=== PATIENT | female | born 1955 | race Hispanic/Latino ===

== ENCOUNTER 2017-03-19 07:20 | Inpatient (IN) | payer BC ==
[2017-03-19 07:31] VITALS: BMI 25.0
[2017-03-19] MEDS ORDERED: Iohexol 240 (50 ml) ONE (08:00)
--- NOTE | 2017-03-19 08:02 | ED PDOC ---
Arrival/HPI - General Historian: Patient - History of Present Illness Time/Duration: 1 week Symptom Onset: Gradual Symptom Course: Unchanged Quality: Aching, Cramping Severity Level: 4 Activities at Onset: Rest Context: Home - General Chief Complaint: Abdominal Pain Time Seen by Provider: 03/19/17 07:43 - History of Present Illness Narrative History of Present Illness (Text): 03/19/17 08:01 This is a 61Y F with PMH pancreatitis, alcoholic hepatitis, cholelithiasis who came to ED for abdominal pain x 1 week. She reports it starts at the RUQ and has had this in the past. She also says that she has been having n/v/d, but denies blood or dark stools. She used menthol alcohol to make her feel better. Her last drink was at 5pm yesterday. She also reports having subjective fever and chills. She denies CP, SOB, numbness/tingling, vision changes, dysuria or hematuria. She was last seen at [facility] in 09/2016 and was found to have a mass in gallbladder on abdominal ultrasound. Patient was noted to be a poor surgical candidate. She had an EGD also at [facility] at that time which showed esophageal varices. (Melinda Garcia) Past Medical History - Provider Review Nursing Documentation Reviewed: Yes - Infectious Disease Hx of Infectious Diseases: None - Tetanus Immunization Tetanus Immunization: Unknown - Cardiac Hx Cardiac Arrhythmia: Yes (SVT) Hx Pacemaker: No - Neurological Hx Paralysis: No - Hematological/Oncological Hx Hepatitis A: Yes Other/Comment: hypothermia - Musculoskeletal/Rheumatological Hx Falls: No - Gastrointestinal Hx Gastrointestinal Disorders: (hiatal hernia) Other/Comment: galstones - Psychiatric Hx Depression: No Hx Emotional Abuse: No Hx Physical Abuse: No Hx Substance Use: No - Past Surgical History Past Surgical History: No Previous - Surgical History Other/Comment: heart ablasion - Anesthesia Hx Anesthesia Reactions: No - Suicidal Assessment Feels Threatened In Home Enviroment: No Family/Social History - Physician Review Nursing Documentation Reviewed: Yes Family/Social History: Unknown Family HX Smoking Status: Current Some Days Smoker Hx Alcohol Use: Yes (since teenage years) Hx Substance Use: No Hx Substance Use Treatment: No Allergies/Home Meds Allergies/Adverse Reactions: Allergies No Known Allergies Allergy (Verified 03/19/17 08:23) Home Medications: Home Meds Medication Instructions Recorded Confirmed Ursodiol [Actigall] 300 mg PO BID 10/09/16 03/19/17 amLODIPine [Norvasc] 10 mg PO DAILY 10/09/16 03/19/17 traMADol [Ultram] 50 mg PO PRN PRN 10/09/16 03/19/17 Review of Systems - Review of Systems Constitutional: Fevers Eyes: Normal. absent: Vision Changes ENT: Normal. absent: Hearing Changes Respiratory: Normal. absent: SOB, Cough Cardiovascular: Normal. absent: Chest Pain, Palpitations Gastrointestinal: Abdominal Pain, Diarrhea, Nausea, Vomiting. absent: Constipation, Hematochezia, Hematemesis Genitourinary Female: Normal. absent: Dysuria, Frequency, Hematuria Musculoskeletal: Normal. absent: Arthralgias Skin: Normal. absent: Rash Neurological: Normal. absent: Headache, Dizziness Endocrine: Normal. absent: Diaphoresis Hemo/Lymphatic: Normal. absent: Easy Bleeding, Easy Bruising Psychiatric: Normal. absent: Anxiety, Depression Physical Exam Vital Signs Reviewed: Yes Temperature: Afebrile Blood Pressure: Normal Pulse: Tachycardic Respiratory Rate: Normal Appearance: Positive for: Well-Appearing, Non-Toxic, Comfortable Pain Distress: None Mental Status: Positive for: Alert and Oriented X 3 - Systems Exam Head: Present: Atraumatic, Normocephalic Pupils: Present: PERRL Extroacular Muscles: Present: EOMI Conjunctiva: Present: Normal Mouth: Present: Moist Mucous Membranes Neck: Present: Normal Range of Motion Respiratory/Chest: Present: Clear to Auscultation, Good Air Exchange. No: Respiratory Distress, Accessory Muscle Use Cardiovascular: Present: Regular Rate and Rhythm, Normal S1, S2. No: Murmurs Abdomen: Present: Tenderness, Distention, Normal Bowel Sounds. No: Peritoneal Signs, Rebound, Guarding Back: Present: Normal Inspection Upper Extremity: Present: Normal Inspection. No: Cyanosis, Edema Lower Extremity: Present: Normal Inspection. No: Edema Neurological: Present: GCS=15, CN II-XII Intact, Speech Normal Skin: Present: Warm, Dry, Normal Color. No: Rashes Psychiatric: Present: Alert, Oriented x 3, Normal Insight, Normal Concentration Medical Decision Making Re-evaluation Time: 09:30 Reassessment Condition: Unchanged - Lab Interpretations I have reviewed the lab results: Yes Interpretation: Abnormal lab values (elevated bilirubin) - RAD Interpretation Mining Analyst: Radiologist - EKG Interpretation Interpreted by ED Physician: Yes Type: 12 lead EKG Comparison: Com.w/previous EKG ED Course and Treatment: 03/19/17 08:07 Impression: This is a 61Y F with PMH pancreatitis, alcoholic hepatitis, cholelithiasis here for abdominal pain. Plan: -- EKG -- CBC, CMP, U/A, Urine culture, amylase, lipase, pt/ptt, ammonia -- CT abd/pelvis, Abdominal U/S -- Pepcid, IVF, Zofran --Reassess Prior Visits: Notes and results from previous visits were reviewed. 03/19/17 10:00 Progress Note: Patient still complains of pain. Morphine given. Patient found to have leukocytosis, UTI and elevated bilirubin. Zosyn ordered. Spoke with Dr. Enamorado who has accepted the patient into his service. (Melinda Garcia) Patient Seen With Resident: In agreement with resident note. Patient was seen and evaluated with resident, came up with plan and treatment together. (Sergio Ty DO) - Lab Interpretations Lab Results: 03/19/17 08:00 03/19/17 09:00 Lab Results 03/19/17 09:00: Amylase 35, Lipase 44 03/19/17 09:00: Alcohol, Quantitative < 10 03/19/17 09:00: Sodium 128 L, Potassium 3.6, Chloride 92 L, Carbon Dioxide 28, Anion Gap 12, BUN 7, Creatinine 0.7, Est GFR ( Amer) > 60, Est GFR (Non- Af Amer) > 60, Random Glucose 112 H, Calcium 8.4, Total Bilirubin 6.4 H, AST 142 H, ALT 30, Alkaline Phosphatase 194 H, Total Protein 7.0, Albumin 3.3, Globulin 3.7, Albumin/Globulin Ratio 0.9 L 03/19/17 08:00: Urine Color Light brown, Urine Appearance Cloudy, Urine pH 6.0, Ur Specific [place] 1.020, Urine Protein 30 H, Urine Glucose (UA) 100 H, Urine Ketones Trace H, Urine Blood Trace-lysed H, Urine Nitrate Positive H, Urine Bilirubin Large H, Urine Urobilinogen >=8.0, Ur Leukocyte Esterase Trace H, Urine RBC 0 - 2, Urine WBC 0 - 2, Ur Epithelial Cells 3 - 4, Urine Bacteria Large 03/19/17 08:00: WBC 11.3 H D, RBC 3.59, Hgb 13.0, Hct 37.8, MCV 105.3 H, MCH 36.2 H, MCHC 34.4, RDW 13.9, Plt Count 156, MPV 10.4 - RAD Interpretation Narrative RAD Interpretations (Text): CXR showed no active disease. Please see full report. (Melinda Garcia) Radiology Orders: 03/19/17 07:46 CHEST PORTABLE [RAD] Stat 03/19/17 07:57 ABD PELVIS PO & IV CONTRAST [CT] Stat ABDOMEN COMPLETE [US] Stat - EKG Interpretation EKG Interpretation (Text): 03/19/17 08:45 HR 120. intervals within normal limits. LVH. Sinus tachycardia. (Melinda Garcia) - Medication Orders Current Medication Orders: Sodium Chloride (Sodium Chloride 0.9%) 1,000 mls @ 250 mls/hr IV .Q4H ONE Stop: 03/19/17 12:12 Last Admin: 03/19/17 08:30 Dose: 250 mls/hr Piperacillin Sod/Tazobactam Sod (Zosyn 3.375 In Ns 100ml) 100 mls @ 200 mls/hr IVPB STAT STA PRN Reason: Protocol Stop: 03/19/17 11:16 Discontinued Medications Famotidine (Pepcid) 20 mg IVP STAT STA Stop: 03/19/17 08:14 Last Admin: 03/19/17 08:30 Dose: 20 mg Iohexol (Omnipaque 240 (50 Ml)) Confirm Administered Dose 50 ml .ROUTE .STK-MED ONE Stop: 03/19/17 08:01 Iohexol (Omnipaque 350 100 Ml) Confirm Administered Dose 350 mg .ROUTE .STK-MED ONE Stop: 03/19/17 09:39 Morphine Sulfate (Morphine) 2 mg IVP STAT STA Stop: 03/19/17 09:18 Ondansetron HCl (Zofran Inj) 4 mg IVP STAT STA Stop: 03/19/17 08:14 Last Admin: 03/19/17 08:30 Dose: 4 mg Disposition/Present on Arrival - Present on Arrival Any Indicators Present on Arrival: No History of DVT/PE: No History of Uncontrolled Diabetes: No Urinary Catheter: No History Surgical Site Infection Following: None - Disposition Have Diagnosis and Disposition been Completed?: Yes Disposition Time: 10:00 Patient Plan: Admission - Disposition Diagnosis: Abdominal pain Disposition: HOSPITALIZED Patient Problems: Current Active Problems Problem Status Onset Abdominal pain Acute Condition: FAIR Print Language: TELUGU Referrals: [employer] Yohannes Christianson, [Non-Staff] - Follow up with primary
[2017-03-19] MEDS ORDERED: Sodium Chloride 0.9% 1,000 ML IV ONE (08:13)
[2017-03-19 08:28] LABS: HEMATOCRIT 37.8 % (36.0-48.0); MEAN CELL VOLUME 105.3 fL (80.0-105.0); MEAN CORPUSCULAR HEMOGLOBIN 36.2 pg (25.0-35.0); MEAN CORPUSCULAR HGB CONC 34.4 g/dl (31.0-37.0); MEAN PLATELET VOLUME 10.4 fl (7.0-11.0); RED CELL DISTRIBUTION WIDTH 13.9 % (11.5-14.5); WHITE BLOOD COUNT 11.3 10^3/ul (4.5-11.0)
--- NOTE | 2017-03-19 09:01 | RAD ---
HISTORY: SOB COMPARISON: 03/19/2017 FINDINGS: LUNGS: No active pulmonary disease. PLEURA: No significant pleural effusion identified, no pneumothorax apparent. CARDIOVASCULAR: Normal. OSSEOUS STRUCTURES: No significant abnormalities. VISUALIZED UPPER ABDOMEN: Normal. OTHER FINDINGS: None. IMPRESSION: No active disease.
[2017-03-19 09:10] LABS: URINE APPEARANCE CLOUDY (CLEAR); URINE BILIRUBIN LARGE (NEGATIVE); URINE BLOOD TRACE-LYSED (NEGATIVE); URINE COLOR LIGHT BROWN (YELLOW); URINE GLUCOSE (UA) 100 mg/dL (NEGATIVE); URINE KETONE TRACE mg/dL (NEGATIVE); URINE LEUKOCYTE ESTERASE TRACE Leu/uL (NEGATIVE); URINE PROTEIN 30 mg/dL (<30 mg/dL); URINE UROBILINOGEN >=8.0 E.U./dL (<1 E.U./dL)
[2017-03-19 09:12] LABS: URINE RBC 0 - 2 /hpf (0-2); URINE WBC 0 - 2 /hpf (0-6)
[2017-03-19 09:13] LABS: URINE BACTERIA LARGE (NEG)
[2017-03-19] MEDS ORDERED: cefTRIAXone 1 gm 1 GM/100 ML BAG IVPB STA (09:15)
[2017-03-19] MEDS ORDERED: Morphine 2 mg/ml ISec IVP STA (09:17)
[2017-03-19 09:25] LABS: ALB/GLOB RATIO 0.9 (1.1-1.8); ALKALINE PHOSPHATASE 194 U/L (38-133); ALT/SGPT 30 U/L (7-56); AST/SGOT 142 U/L (15-39); BILIRUBIN,TOTAL 6.4 mg/dL (0.2-1.3); BLOOD UREA NITROGEN 7 mg/dL (7-21); CALCIUM 8.4 mg/dL (8.4-10.5); CARBON DIOXIDE 28 mmol/L (21-33); CHLORIDE 92 mmol/L (95-110); GFR AFRICAN-AMERICAN > 60; GLUCOSE,RANDOM 112 mg/dL (70-110); POTASSIUM 3.6 mmol/L (3.6-5.0); SODIUM 128 mmol/L (132-148)
[2017-03-19] MEDS ORDERED: Iohexol 350 MG/100 ML VIAL ONE (09:38)
--- NOTE | 2017-03-19 09:57 | CARD ---
APPROVED REPORT EKG Measurement Heart [id number] <Conclusion> Sinus tachycardia Possible Left atrial enlargement Left ventricular hypertrophy Cannot rule out Septal infarct, age undetermined Possible Lateral infarct, age undetermined Abnormal ECG
--- NOTE | 2017-03-19 10:25 | US ---
HISTORY: abdominal pain, mass in gall bladder on last U/S COMPARISON: CT chest, abdomen, pelvis without contrast performed 10/31/16, abdominal ultrasound performed 10/15/16 TECHNIQUE: Sonographic evaluation of the abdomen. FINDINGS: LIVER: Measures 21.9 cm in sagittal dimension. Echogenic liver may be seen in setting of hepatic parenchymal disease or fatty infiltration. No focal hepatic mass identified. The main portal vein appears patent with normal directional flow. No intrahepatic bile duct dilatation. Abdominal ascites. GALLBLADDER: Large heterogeneous partially echogenic focus with posterior acoustic shadowing consistent with gallstone identified on CT performed 10/31/16. No gallbladder wall thickening. Negative sonographic Summers's sign as assessed by the application technical designer. COMMON BILE DUCT: Measures 6 mm. PANCREAS: Not well visualized. RIGHT KIDNEY: Measures 10.6 x 3.7 x 6.5 cm. No obstructing calculus or hydronephrosis identified. LEFT KIDNEY: Measures 8.9 x 4.5 x 5.3 cm. 1.2 x 0.9 x 1.1 cm lower pole probable renal cyst. No obstructing calculus or hydronephrosis identified. SPLEEN: Measures approximately 11.1 cm. AORTA: Limited views appear unremarkable. IVC: Limited views appear unremarkable. OTHER FINDINGS: None. IMPRESSION: Abdominal ascites. Hepatomegaly. Echogenic liver may be seen in setting of hepatic parenchymal disease or fatty infiltration. Large heterogeneous partially echogenic focus with posterior acoustic shadowing consistent with gallstone identified on CT performed 10/31/16. Gallbladder mass cannot be entirely excluded. 1.2 cm probable left lower pole renal cyst.
[2017-03-19 10:45] LABS: AMYLASE 35 U/L (35-125); LIPASE 44 U/L (23-300)
[2017-03-19] MEDS ORDERED: Piperacillin/Tazobact 3.375 gm 100 ML IVPB STA (10:47)
--- NOTE | 2017-03-19 10:54 | CT ---
PROCEDURE: CT Abdomen and Pelvis with contrast HISTORY: abdominal pain COMPARISON: 10/31/2016 TECHNIQUE: Contrast dose: 100 cc of Omni 350 Radiation dose: Total exam DLP = 896 mGy-cm. This CT exam was performed using one or more of the following dose reduction techniques: Automated exposure control, adjustment of the mA and/or kV according to patient size, and/or use of iterative reconstruction technique. FINDINGS: LOWER THORAX: Moderate hiatal hernia. Bibasilar consolidation with small effusions LIVER: Patchy areas of edema are seen in the periphery of the liver. This could be due to hepatitis GALLBLADDER AND BILE DUCTS: There is a large 2 x 3 cm gallstone. PANCREAS: Unremarkable. No gross lesion or ductal dilatation. SPLEEN: Unremarkable. ADRENALS: Unremarkable. No mass. KIDNEYS AND URETERS: Unremarkable. No hydronephrosis. No solid mass. VASCULATURE: Unremarkable. No aortic aneurysm. BOWEL: There is mural thickening and edema in the wall of the colon consistent with colitis. APPENDIX: Normal appendix. PERITONEUM: There is severe ascites LYMPH NODES: Unremarkable. No enlarged lymph nodes. BLADDER: Unremarkable. REPRODUCTIVE: Unremarkable. BONES: No acute fracture. OTHER FINDINGS: None. IMPRESSION: Severe ascites Mural thickening and edema in the wall of the colon consistent with colitis. Large gallstone Patchy areas of edema in the periphery of the liver, possible hepatitis
[2017-03-19] MEDS ORDERED: Multivitamin (MVI) 10 ML, Thiamine 100 MG, Folic Acid 1 MG in Sodium Chloride 0.9% 1,00... IV ONE (11:34)
[2017-03-19 12:28] LABS: INR 1.31 (0.93-1.08); PARTIAL THROMBOPLASTIN TIME 29.2 Seconds (23.7-30.8)
[2017-03-19] MEDS: Sodium Chloride 0.9% 1,000 ML IV SCH ×2 (15:06→22:00)
--- NOTE | 2017-03-19 15:08 | HP ---
HISTORY OF PRESENT ILLNESS: The patient is a 61-year-old female who presented to the Emergency Room accompanied by the patient's parents. According to the ER triage notes, the patient came to the Emergency Room with abdominal pain on and off for 4 days accompanied by nausea and vomiting. The patient stated that the symptoms have been ongoing for months, but patient has been ignoring them. In addition, the patient complained of abdominal pain for a week, mostly in the upper abdomen with abdominal protuberance noted. The patient also complaining of nausea, vomiting, diarrhea. Denies constipation. The patient is an active alcoholic with last drink yesterday. CODE STATUS: Full code. LIVING WILL AND ADVANCED DIRECTIVE: None. ALLERGIES: None. Height is 5 feet 7 inches, weight is 160, BMI is 25.1. HOME MEDICATIONS: 1. Norvasc 10 mg. 2. Actigall, ursodiol 300 twice a day. 3. Protonix 20 mg. 4. Corgard 20 mg daily. 5. Ultram 50 mg p.r.n. SOCIAL HISTORY: Positive for active alcoholism, positive for active smoking. The patient denies communicable transmissible disease. OCCUPATIONAL HISTORY: The patient is still employed and working. MENSTRUAL HISTORY: The patient denies being . PAST MEDICAL AND SURGICAL HISTORY: History of alcoholism, history of nicotine dependence, history of cirrhosis, history of gastrointestinal bleeding, history of ascites, history of paracentesis, history of anemia, history of thrombocytopenia, history of poor compliance, history of transaminitis, history of obstructive jaundice with hyperbilirubinemia and transaminitis, history of hyponatremia, history of proteinuria, microscopic hematuria, pyuria, bacteriuria , history of alcohol dependence, history of negative hepatitis C serology. The patient's past medical history is significant for left foot abscess, history of A positive blood type. The patient's past medical history is significant for severe noncompliance, history of ascites, history of portal hypertension according to the patient, history of ascites, history of severe noncompliance, history of extrahepatic portal vein thrombosis, history of severe noncompliance , history of severe hepatocellular dysfunction, history of cholelithiasis, history of hepatic steatosis and fatty infiltration of the liver, history of mass-like focus in the gallbladder with calcified rim suggestive of large gallstone. The patient's past medical history is significant for history of hepatic steatosis, history of atelectasis, history of nicotine and alcohol dependence, history of left renal hypodense lesion, history of questionable colitis, history of cirrhosis, history of hepatic steatosis. The patient's past medical history is significant for degenerative joint disease and arthritis of the knees, history of chronic alcoholism, history of chronic microvascular ischemic disease of the brain. The patient's past medical history is significant for hiatal hernia, history of left renal hemorrhagic cyst , history of gastritis. The patient's past medical history is significant for chronic alcoholism, history of left axis deviation, history of hypertensive cardiovascular disease. Past medical history is significant for history of hematemesis, history of thrombocytopenia, history of alcohol abuse, history of hypertension. The patient's past medical history is significant for hepatic cirrhosis, active alcohol abuse, history of hematemesis, history of hepatic cirrhosis. The patient's past medical history is also significant for history of [place] grade A esophagitis and grade I varices of the esophagus, hiatal hernia, history of portal hypertensive gastropathy in the stomach, history of endoscopy done, history of hiatal hernia, history of duodenitis, history of EGD done in 09/2016. PHYSICAL EXAMINATION: GENERAL: The patient is seen in stretcher #8. The patient is lying in the bed. The patient is alert, awake, responsive. VITAL SIGNS: T-max 98.9, heart rate initially 120, down to 99, blood pressure 120/70, 104/65, respirations 18, O2 sat 96. The patient is seen lying in the bed. HEAD: Normocephalic, atraumatic. HEENT: Shows positive icterus. Positive jaundice. Dry oral mucosa. NECK: No neck rigidity. CHEST: Kyphosis. LUNGS: Shows no rales, crackles, or wheezing. CARDIOVASCULAR: S1, S2. Regular rhythm. ABDOMEN: Protuberant, tense ascites noticed, diffuse, wall entry guarding noted. Positive tenderness noted diffusely. GENITALIA: Female. RECTAL: Deferred. EXTREMITIES: Shows no pitting edema, no calf tenderness, no Andrzej sign. NEUROLOGIC: The patient is alert, awake, oriented x 3. No asterixis noted. EXTREMITIES: Show no pitting edema, no calf tenderness, no Andrzej sign. NEUROLOGIC: The patient is alert, awake, oriented x 3. Cranial nerves II-XII intact. Gait examination could not be tested. VASCULAR: Palpable pulses. PSYCHIATRIC: Negative. DIAGNOSTICS: WBC 11.3, hemoglobin and hematocrit 13 and 37.8, MCV 105.3, platelets 156. PT, PTT 14.2, INR 1.3. Sodium 128, potassium 3.6, chloride 92, CO2 28, anion gap 12, BUN 7, creatinine 0.7, GFR greater than 60, glucose 112, calcium 8.4, total bili 6.4, AST 142, alk phos 194, ammonia 22. Amylase and lipase is normal. Urine pH 6.0, specific gravity 1.020, 30 protein, glucose 100 , trace ketones, hemolyzed blood, positive nitrites, large bilirubin, trace leukocyte, large bacteria. Alcohol level less than 10. The patient had a CT of the abdomen and pelvis, which shows hiatal hernia, bibasilar consolidation. Hepatic edema noted. Large gallstone noted. Colonic wall mural thickening noted. The patient had an ultrasound done, which shows abdominal ascites, hepatomegaly and hepatic steatosis. The patient's chest x-ray was done in the Emergency Room, which shows no active disease. EKG done in the Emergency Room shows sinus rhythm, left sinus tachycardia, left axis deviation, questionable hypertensive cardiovascular disease. The patient was seen in the Emergency Room by the ER resident. The patient was advised to be admitted. IMPRESSION AND PLAN: 1. Severe symptomatic Tense ascites with symptoms of nausea and vomiting. 2. Urinary tract infection with proteinuria, ketonuria, pyuria, hematuria, bacteriuria. 3. Tachycardia. 4. Hypotension. 5. Leukocytosis. 6. Macrocytosis. 7. Mild coagulopathy. 8. Hyponatremia. 9. Hyperbilirubinemia. 10. Transaminitis. 11. History of active nicotine and alcohol addiction and dependence. 12. Sinus tachycardia. 13. Hypertensive cardiovascular disease. 14. Moderate hiatal hernia. 15. Bibasilar consolidation and effusion. 16. Hepatic edema. 17. Large cholelithiasis. 18. Questionable colitis with colonic wall thickening and edema. 19. Severe ascites. 20. Hepatic fatty infiltration and hepatic steatosis. 21. Massive gallstone. 22. Probable left renal cyst. 23. Tachycardia. PLAN: At this time, the patient is to be admitted to [facility] The patient has been started on IV fluid, normal saline. The patient has been ordered a urine drug screen, thyroid panel, lipid panel. Vitamin B12, vitamin D has been ordered. Repeat CMP, LFT, magnesium, CBC ordered. Blood and urine cultures ordered. CURRENT CONSULTATIONS: 1. Gastroenterology. 2. Surgery. 3. Infectious disease. 4. Interventional radiology ordered. The patient is resumed on Actigall 300 mg twice a day, IV fluids 0.9 normal saline at 100 mL an hour. The patient is resumed on Corgard 20 mg daily, folic acid 1 mg daily, Nicotine patch 21 mg daily, Protonix 20 mg twice a day, IV fluid 0.9 normal saline at 100 mL an hour, thiamine 100 mg IV daily, Zofran 4 IV q. 4 p.r.n., Zosyn 3.375 grams IV q. 6 hours. The patient was started on CIWA protocol and assessment. Out of bed. The patient was seen in stretcher # 8 in the Emergency Room. The patient has been seen and counseled about her condition. The patient has been counseled about cessation of smoking and cessation of alcohol, which she acknowledged and understands. Dictated and electronically signed, not read. Juan Jose Enamorado MD cc: [id number] TT: 03/19/2017 15:08:11 charles LITTLE
[2017-03-19] MEDS: Thiamine 100 mg/ml Inj IV SCH (15:15)
--- NOTE | 2017-03-19 16:02 | CP.PCM.CON ---
History of Present Illness - History of Present Illness History of Present Illness: Seen and examined at bedside, chart was reviewed. Request for consult: Liver Cirrhosis HPI: This is a 61 year old female with a history of Liver cirrhosis secondary to alcohol abuse, Cholelithiasis, comes to the ER with complaints of abdominal pain to RUQ, nausea, vomiting and diarrhea yesterday. Reports that she felt feverish and had chills. No reports of bleeding per rectum. She has history of gallstones and is not a candidate for surgery she was told, she is Ursodiol. She goes to [facility] for FU of her liver. She was last seen in October and has not followed since. She last took alcohol yesterday, "Menthol" to help ease her abdominal discomfort. She was seen by our GI service in September 2016 for hematemesis and she had an EGD and found to have gastric varicies. Ct scan done on admission that rerpot possible colits, show ascites and hepatomegaly, abdominal US was also done and that show gallstone, CBD 6 mm. NO protal vein thrombosis is reported.The patient last had her Colon was at [facility] and was not found to have colon polyps. PMH: ETOH abuse, cholelithiasis, HTN, pancreatitis, Ascites, portal vein thrombosis (2013) Surgical hx: cardiac ablation Fhx: denies Social HX: actively drinking, she drinks daily, (+) smoking, denies drugs Allergies: NKDA Meds: as per DEC ROS: systems reviewed with positive findings, see HPI Past Patient History - Infectious Disease Hx of Infectious Diseases: None - Tetanus Immunizations Tetanus Immunization: Unknown - Past Medical History & Family History Past Medical History?: Yes - Past Social History Smoking Status: Current Some Days Smoker - CARDIAC Hx Cardia Arrhythmia: Yes (SVT) Hx Pacemaker: No - NEUROLOGICAL Hx Paralysis: No - HEMATOLOGICAL/ONCOLOGICAL Hx Hepatitis A: Yes Other/Comment: hypothermia - MUSCULOSKELETAL/RHEUMATOLOGICAL Hx Falls: No - GASTROINTESTINAL Hx Gastrointestinal Disorders: (hiatal hernia) Other/Comment: galstones - PSYCHIATRIC Hx Depression: No Hx Emotional Abuse: No Hx Physical Abuse: No Hx Substance Use: No - SURGICAL HISTORY Other/Comment: heart ablasion - ANESTHESIA Hx Anesthesia Reactions: No Meds Allergies/Adverse Reactions: Allergies Allergy/AdvReac Type Severity Reaction Status Date / Time No Known Allergies Allergy Verified 03/19/17 08:23 - Medications Medications: Current Medications Folic Acid (Folic Acid) 1 mg PO DAILY [facility] [place] Last Admin: 03/19/17 15:06 Dose: 1 mg Multivitamins/Vitamin C 10 ml/Thiamine HCl 100 mg/ Folic Acid 1 mg/ Sodium Chloride 1,011.2 mls @ 100 mls/hr IV .Q10H7M ONE Stop: 03/19/17 21:40 Last Admin: 03/19/17 13:35 Dose: 100 mls/hr Sodium Chloride (Sodium Chloride 0.9%) 1,000 mls @ 100 mls/hr IV .Q10H [facility] [place] Last Admin: 03/19/17 15:06 Dose: 100 mls/hr Piperacillin Sod/Tazobactam Sod (Zosyn 3.375 In Ns 100ml) 100 mls @ 200 mls/hr IVPB Q6 [facility] PRN Reason: Protocol Stop: 03/24/17 12:29 Nadolol (Corgard) 20 mg PO DAILY [facility] [place] Last Admin: 03/19/17 15:05 Dose: 20 mg Nicotine (Nicoderm Cq) 1 patch TD DAILY [facility] [place] Last Admin: 03/19/17 15:04 Dose: 1 patch Ondansetron HCl (Zofran Inj) 4 mg IVP Q4H PRN PRN Reason: Nausea/Vomiting Pantoprazole Sodium (Protonix Ec Tab) 20 mg PO 0730,1630 [facility] [place] Thiamine HCl (Vitamin B1 Inj) 100 mg IV DAILY [facility] [place] Last Admin: 03/19/17 15:15 Dose: 100 mg Ursodiol (Actigall) 300 mg PO BID [facility] [place] Physical Exam - Constitutional Appears: No Acute Distress - Head Exam Head Exam: NORMAL INSPECTION - Eye Exam Eye Exam: Normal appearance, PERRL. absent: Scleral icterus - ENT Exam ENT Exam: Mucous Membranes Moist - Neck Exam Neck exam: Positive for: Normal Inspection - Respiratory Exam Respiratory Exam: Clear to Auscultation Bilateral, NORMAL BREATHING PATTERN. absent: Respiratory Distress - Cardiovascular Exam Cardiovascular Exam: +S1, +S2 - GI/Abdominal Exam GI & Abdominal Exam: Distended, Normal Bowel Sounds, Soft, Tenderness (ascites, mid abdominal tenderness.). absent: Guarding, Rebound - Extremities Exam Extremities exam: Negative for: calf tenderness, pedal edema - Neurological Exam Neurological exam: Alert, Oriented x3 - Psychiatric Exam Psychiatric exam: Normal Affect, Normal Mood - Skin Skin Exam: Dry, Warm Results - Vital Signs Recent Vital Signs: Last Vital Signs Temp 98.9 F 03/19/17 07:31 Pulse 117 H 03/19/17 15:05 Resp 18 03/19/17 11:35 BP 111/76 03/19/17 15:05 Pulse Ox 96 03/19/17 11:35 - Labs Result Diagrams: 03/20/17 07:00 03/20/17 07:00 Labs: Laboratory Results - last 24 hr 03/19/17 13:50 Urine Opiates Screen Positive H Urine Methadone Screen Negative Ur Barbiturates Screen Negative Ur Phencyclidine Scrn Negative Ur Amphetamines Screen Negative U Benzodiazepines Scrn Positive H U Oth Cocaine Metabols Negative U Cannabinoids Screen Negative Assessment & Plan - Assessment and Plan (Free Text) Assessment: ASSESSMENT: Liver Cirrhosis 2 to ETOH N/V/D, Abdominal pain, r/o colitis Ascites Leukocytosis Elevated LFT Grade I varices, portal hypertensive gastropathy H/O Chronic alcohol intake Cholelithiasis, not candidate for surgery H/O portal vein thrombosis PLAN: abdominal doppler, FU portal vein thrombsis on IV antibiotics as per ID Check AFP level in am continue PPI diet as tolerated monitor LFT for evaluation for paracentesis. IVF: MVI folic and thiamine Thank you for this consult and for allowing us to participate in your patients care, will make further recommendation based upon clinical course. Seen and discussed with Dr. Cullen.
--- NOTE | 2017-03-19 16:13 | CP.PCM.CON ---
<Rodriguez Bonner - Last Filed: 03/20/17 08:39> History of Present Illness - History of Present Illness History of Present Illness: General surgery consult note for Rodriguez Mcmullen PGY1 HPI: Patient is a 61yo female with past medical history of gallstones, portal vein hypertension, pancreatitis and varices presented to the ED with abdominal pain since this past Friday. Patient reports the pain is the worst in the RUQ. Pt tried Tramadol, which alleviated the pain temporarily. Patient reports she couldn't eat anything for the past 5 days due to nausea. Pt admits to multiple episodes of non-bilious, non-bloody vomit. Pt reports chest pain, subjective ever, nausea, vomiting, diarrhea, dry cough, SOB, SERRA/dizziness but denies chills , numbness/tingling, and palpitations. 12 point ROS as per HPI above, otherwise negative PMHx: Hiatal hernia, Rheumatoid arthritis, degenerative disc disease, fatty liver disease PSHx: SVT ablation (2006) Allergies: NKDA Social Hx: Admits to tobacco use 1ppd for past 16yrs; occasional ETOH, denies illicit drugs Family Hx: Mother: Colon Ca; Father: CAD PMD: Dr. Luther Past Patient History - Infectious Disease Hx of Infectious Diseases: None - Tetanus Immunizations Tetanus Immunization: Unknown - Past Medical History & Family History Past Medical History?: Yes Past Family History: Reviewed and not pertinent - Past Social History Smoking Status: Light Smoker < 10 Cigarettes Daily Alcohol: Occasional Drugs: Denies - CARDIAC Hx Cardia Arrhythmia: Yes (SVT) Hx Pacemaker: No - NEUROLOGICAL Hx Paralysis: No - HEMATOLOGICAL/ONCOLOGICAL Hx Hepatitis A: Yes Other/Comment: hypothermia - MUSCULOSKELETAL/RHEUMATOLOGICAL Hx Degenerative Joint Disease: Yes Hx Falls: No Hx Herniated Disk: Yes (cervical and sacral) Hx Rheumatoid Arthritis: Yes - GASTROINTESTINAL Hx Gastrointestinal Disorders: (hiatal hernia) Hx Fatty Liver Disease: Yes Hx Nausea: Yes Hx Pancreatitis: Yes Hx Vomiting: Yes Other/Comment: galstones - PSYCHIATRIC Hx Depression: No Hx Emotional Abuse: No Hx Physical Abuse: No Hx Substance Use: No - SURGICAL HISTORY Other/Comment: heart ablasion - ANESTHESIA Hx Anesthesia Reactions: No Meds Allergies/Adverse Reactions: Allergies Allergy/AdvReac Type Severity Reaction Status Date / Time No Known Allergies Allergy Verified 03/19/17 08:23 - Medications Medications: Current Medications Folic Acid (Folic Acid) 1 mg PO DAILY [facility] Last Admin: 03/19/17 15:06 Dose: 1 mg Multivitamins/Vitamin C 10 ml/Thiamine HCl 100 mg/ Folic Acid 1 mg/ Sodium Chloride 1,011.2 mls @ 100 mls/hr IV .Q10H7M ONE Stop: 03/19/17 21:40 Last Admin: 03/19/17 13:35 Dose: 100 mls/hr Sodium Chloride (Sodium Chloride 0.9%) 1,000 mls @ 100 mls/hr IV .Q10H [facility] Last Admin: 03/19/17 15:06 Dose: 100 mls/hr Piperacillin Sod/Tazobactam Sod (Zosyn 3.375 In Ns 100ml) 100 mls @ 200 mls/hr IVPB Q6 [facility] PRN Reason: Protocol Stop: 03/24/17 12:29 Nadolol (Corgard) 20 mg PO DAILY [facility] Last Admin: 03/19/17 15:05 Dose: 20 mg Nicotine (Nicoderm Cq) 1 patch TD DAILY [facility] Last Admin: 03/19/17 15:34 Dose: Not Given Ondansetron HCl (Zofran Inj) 4 mg IVP Q4H PRN PRN Reason: Nausea/Vomiting Pantoprazole Sodium (Protonix Ec Tab) 20 mg PO 0730,1630 [facility] Thiamine HCl (Vitamin B1 Inj) 100 mg IV DAILY [facility] Last Admin: 03/19/17 15:15 Dose: 100 mg Tramadol HCl (Ultram) 50 mg PO Q8H PRN PRN Reason: Pain, severe (8-10) Ursodiol (Actigall) 300 mg PO BID [facility] Physical Exam - Constitutional Appears: Well, Non-toxic, No Acute Distress - Head Exam Head Exam: ATRAUMATIC, NORMAL INSPECTION, NORMOCEPHALIC - Eye Exam Eye Exam: EOMI, PERRL - ENT Exam ENT Exam: Mucous Membranes Moist - Neck Exam Neck exam: Positive for: Normal Inspection - Respiratory Exam Respiratory Exam: Clear to Auscultation Bilateral, NORMAL BREATHING PATTERN. absent: Rales, Rhonchi, Wheezes - Cardiovascular Exam Cardiovascular Exam: RRR, +S1, +S2. absent: Gallop, Rubs - GI/Abdominal Exam GI & Abdominal Exam: Distended, Soft, Tenderness. absent: Guarding, Rigid - Extremities Exam Extremities exam: Positive for: normal inspection - Neurological Exam Neurological exam: Alert, Oriented x3 - Psychiatric Exam Psychiatric exam: Normal Affect, Normal Mood - Skin Skin Exam: Dry, Intact, Normal Color, Warm Results - Vital Signs Recent Vital Signs: Last Vital Signs Temp 98.9 F 03/19/17 07:31 Pulse 117 H 03/19/17 15:05 Resp 18 03/19/17 11:35 BP 111/76 03/19/17 15:05 Pulse Ox 96 03/19/17 11:35 - Labs Result Diagrams: 03/19/17 08:00 03/19/17 09:00 Labs: Laboratory Results - last 24 hr 03/19/17 13:50 Urine Opiates Screen Positive H Urine Methadone Screen Negative Ur Barbiturates Screen Negative Ur Phencyclidine Scrn Negative Ur Amphetamines Screen Negative U Benzodiazepines Scrn Positive H U Oth Cocaine Metabols Negative U Cannabinoids Screen Negative Assessment & Plan - Assessment and Plan (Free Text) Assessment: 61F w/ gallstones and severe ascites Plan: -No acute surgical intervention recommended at this time -CT abd/pelvis reviewed; revealed severe ascites, large gallstone, mural thickening and edema consistent with colitis -Continue medical management as per primary team -Follow up GI recommendations Case discussed with attending, Dr. Girma Bonner PGY1 - Date & Time Date: 03/19/17 Time: 16:23 <Jerry Rayo - Last Filed: 03/20/17 17:23> Meds - Medications Medications: Current Medications Albuterol/Ipratropium (Duoneb 3 Mg/0.5 Mg (3 Ml) Ud) 3 ml IH [id number] [facility] Last Admin: 03/20/17 13:48 Dose: Not Given Cholecalciferol (Vitamin D) 2,000 iu PO DAILY [facility] Folic Acid (Folic Acid) 1 mg PO DAILY [facility] Last Admin: 03/20/17 09:05 Dose: 1 mg Sodium Chloride (Sodium Chloride 0.9%) 1,000 mls @ 100 mls/hr IV .Q10H [facility] Last Admin: 03/19/17 22:00 Dose: Not Given Piperacillin Sod/Tazobactam Sod (Zosyn 3.375 In Ns 100ml) 100 mls @ 200 mls/hr IVPB Q6 [facility] PRN Reason: Protocol Stop: 03/26/17 18:01 Last Admin: 03/20/17 05:28 Dose: 200 mls/hr Nadolol (Corgard) 20 mg PO DAILY [facility] Last Admin: 03/20/17 09:05 Dose: 20 mg Nicotine (Nicoderm Cq) 1 patch TD DAILY [facility] Last Admin: 03/20/17 09:59 Dose: Not Given Ondansetron HCl (Zofran Inj) 4 mg IVP Q4H PRN PRN Reason: Nausea/Vomiting Pantoprazole Sodium (Protonix Ec Tab) 20 mg PO 0730,1630 [facility] Last Admin: 03/20/17 09:05 Dose: 20 mg Thiamine HCl (Vitamin B1 Inj) 100 mg IV DAILY [facility] Last Admin: 03/20/17 09:05 Dose: 100 mg Tramadol HCl (Ultram) 50 mg PO Q8H PRN PRN Reason: Pain, severe (8-10) Last Admin: 03/20/17 09:08 Dose: 50 mg Tramadol HCl (Ultram) 50 mg PO Q6H PRN PRN Reason: Pain, moderate (4-7) Ursodiol (Actigall) 300 mg PO BID [facility] Last Admin: 03/20/17 09:05 Dose: 300 mg Results - Vital Signs Recent Vital Signs: Last Vital Signs Temp 97.6 F 03/20/17 08:01 Pulse 84 03/20/17 09:05 Resp 22 03/20/17 08:01 BP 108/64 03/20/17 09:05 Pulse Ox 93 L 03/20/17 08:01 - Labs Result Diagrams: 03/20/17 07:00 03/20/17 07:00 Labs: Laboratory Results - last 24 hr 03/20/17 03/20/17 03/20/17 07:00 07:00 07:00 WBC RBC Hgb Hct MCV MCH MCHC RDW Plt Count MPV Gran % Lymph % (Auto) [place] % (Auto) Eos % (Auto) Baso % (Auto) Gran # Lymph # [place] # Eos # Baso # Sodium 132 Potassium 3.0 L Chloride 97 Carbon Dioxide 28 Anion Gap 10 BUN 6 L Creatinine 0.8 Est GFR ( Amer) > 60 Est GFR (Non-Af Amer) > 60 Random Glucose 80 Calcium 7.5 L Magnesium 1.4 L Total Bilirubin 4.7 H Direct Bilirubin 3.5 H AST 118 H ALT 34 Alkaline Phosphatase 146 H Total Protein 5.8 Albumin 2.7 L Globulin 3.1 Albumin/Globulin Ratio 0.9 L Triglycerides 126 Cholesterol 116 L LDL Cholesterol Direct 77 HDL Cholesterol 14 L Alpha Fetoprotein 2.3 Vitamin B12 953 H 25-OH Vitamin D Total < 12.8 L Folate 12.6 Free T4 1.77 Thyroxine (T4) 12.4 H TSH 3rd Generation 7.83 H 03/20/17 07:00 WBC 8.2 D RBC 3.10 L Hgb 11.1 L Hct 32.9 L MCV 106.1 H MCH 35.8 H MCHC 33.7 RDW 14.0 Plt Count 141 MPV 10.4 Gran % 67.9 Lymph % (Auto) 19.2 L [place] % (Auto) 10.1 H Eos % (Auto) 2.2 Baso % (Auto) 0.6 Gran # 5.59 Lymph # 1.6 [place] # 0.8 H Eos # 0.2 Baso # 0.05 Sodium Potassium Chloride Carbon Dioxide Anion Gap BUN Creatinine Est GFR ( Amer) Est GFR (Non-Af Amer) Random Glucose Calcium Magnesium Total Bilirubin Direct Bilirubin AST ALT Alkaline Phosphatase Total Protein Albumin Globulin Albumin/Globulin Ratio Triglycerides Cholesterol LDL Cholesterol Direct HDL Cholesterol Alpha Fetoprotein Vitamin B12 25-OH Vitamin D Total Folate Free T4 Thyroxine (T4) TSH 3rd Generation Assessment & Plan - Assessment and Plan (Free Text) Plan: Consultation done under my direct supervision Veronika Rayo MD FACS
[2017-03-19] MEDS: Pantoprazole 20 mg EC Tab PO SCH (16:30)
[2017-03-19] MEDS ORDERED: Pneumococcal 23-Valent Vaccine IM ONE (17:31)
[2017-03-19] MEDS: Piperacillin/Tazobact 3.375 gm 100 ML IVPB SCH ×2 (19:17→23:40)
--- NOTE | 2017-03-20 00:09 | CON ---
DATE: 03/19/2017 ADDENDUM SUBJECTIVE: This patient was seen and evaluated earlier today. This is a 61- year-old patient with a history of cirrhosis secondary to alcohol. Very noncompliant. She did have portal vein in the workup in the past; were all reviewed. This is an addendum to the GI consultation report dictated by Jen Jerome APN. Previous records reviewed. The patient did have decompensated cirrhosis with portal vein thrombosis. She has gallstones. Admitted with abdominal pain, progressively increasing over the past 4 days. Her last alcohol drink was yesterday. On examination, she has large ascites and some tenderness in the right upper quadrant area. The patient did have upper GI endoscopy done in September which revealed grade A esophagitis, grade I esophageal varices, and portal gastropathy. The patient also had duodenitis. The CT scan was reviewed. The patient does have significant ascites. In addition, the gallstone was measuring about 3 cm and appeared to be partially calcified. The patient had some colonic thickening. This could be secondary to more edema from the abdomen, plus cannot rule out any colitis. UA positive culture pending. 1. Agree with empiric antibiotic therapy and a large volume paracentesis. 2. Continue the antibiotics. 3. The patient has a 3 cm large gallstone in a cirrhotic patient. 4. Will discussed with the surgical team. Thank you very much for allowing us to participate in the care of the patient. Barbara Cullen MD cc: [id number] TT: 03/20/2017 00:08:45 Confirmation # [id number] Dictation # [id number] jayden LITTLE
[2017-03-20] MEDS: Piperacillin/Tazobact 3.375 gm 100 ML IVPB SCH ×3 (05:28→23:21)
[2017-03-20 07:14] LABS: ADD MANUAL DIFF? NO
[2017-03-20 07:21] LABS: BASO # 0.05 K/mm3 (0.0-2.0); BASO % 0.6 % (0.0-3.0); EOS # 0.2 (0.0-0.7); EOS % 2.2 % (1.5-5.0); GRAN # 5.59 (1.4-6.5); GRAN % 67.9 % (50.0-68.0); HEMATOCRIT 32.9 % (36.0-48.0); LYMPH # 1.6 (1.2-3.4); LYMPH % 19.2 % (22.0-35.0); MEAN CELL VOLUME 106.1 fL (80.0-105.0); MEAN CORPUSCULAR HEMOGLOBIN 35.8 pg (25.0-35.0); MEAN CORPUSCULAR HGB CONC 33.7 g/dl (31.0-37.0); MEAN PLATELET VOLUME 10.4 fl (7.0-11.0); MONO # 0.8 (0.1-0.6); MONO % 10.1 % (1.0-6.0); PLATELET COUNT 141 10^3/uL (120.0-450.0); WHITE BLOOD COUNT 8.2 10^3/ul (4.5-11.0)
[2017-03-20 07:49] LABS: ALB/GLOB RATIO 0.9 (1.1-1.8); ALKALINE PHOSPHATASE 146 U/L (38-133); ALT/SGPT 34 U/L (7-56); AST/SGOT 118 U/L (15-39); BILIRUBIN,DIRECT 3.5 mg/dL (0.0-0.4); BILIRUBIN,TOTAL 4.7 mg/dL (0.2-1.3); BLOOD UREA NITROGEN 6 mg/dL (7-21); CALCIUM 7.5 mg/dL (8.4-10.5); CARBON DIOXIDE 28 mmol/L (21-33); CHLORIDE 97 mmol/L (95-110); CHOLESTEROL 116 mg/dL (130-200); GFR AFRICAN-AMERICAN > 60; GLUCOSE,RANDOM 80 mg/dL (70-110); MAGNESIUM 1.4 mg/dL (1.7-2.2); SODIUM 132 mmol/L (132-148); TOTAL PROTEIN 5.8 g/dL (5.8-8.3)
--- NOTE | 2017-03-20 08:38 | CP.PCM.PN ---
<Rodriguez Bonner - Last Filed: 03/21/17 08:35> Subjective - Date & Time of Evaluation Date of Evaluation: 03/20/17 Time of Evaluation: 08:33 - Subjective Subjective: General surgery consult note for Rodriguez Montanez PGY1 Patient seen and examined at bedside this morning. No acute overnight events or new complaints. Patient remains to have abdominal discomfort. Discussed with patient that it is unlikely to be due to gallstones and more likely secondary to her ascites. However, abdominal doppler to examine hepatic and portal vein flow is pending today and will be followed up. Recommend considering paracentesis. Objective - Vital Signs/Intake and Output Vital Signs (last 24 hours): Temp Pulse Resp BP Pulse Ox 97.6 F 79 22 103/66 93 L 03/20/17 08:01 03/20/17 08:01 03/20/17 08:01 03/20/17 08:01 03/20/17 08:01 Intake and Output: 03/20/17 03/20/17 06:59 18:59 Intake Total 2100 0 Balance 2100 0 - Medications Medications: Current Medications Folic Acid (Folic Acid) 1 mg PO DAILY [facility] Last Admin: 03/19/17 15:06 Dose: 1 mg Sodium Chloride (Sodium Chloride 0.9%) 1,000 mls @ 100 mls/hr IV .Q10H [facility] Last Admin: 03/19/17 22:00 Dose: Not Given Piperacillin Sod/Tazobactam Sod (Zosyn 3.375 In Ns 100ml) 100 mls @ 200 mls/hr IVPB Q6 [facility] PRN Reason: Protocol Stop: 03/24/17 12:29 Last Admin: 03/20/17 05:28 Dose: 200 mls/hr Magnesium Sulfate 2 gm/ Sodium (Chloride) 104 mls @ 102 mls/hr IVPB Q4H [facility] Stop: 03/20/17 13:32 Nadolol (Corgard) 20 mg PO DAILY [facility] Last Admin: 03/19/17 15:05 Dose: 20 mg Nicotine (Nicoderm Cq) 1 patch TD DAILY [facility] Last Admin: 03/19/17 15:34 Dose: Not Given Ondansetron HCl (Zofran Inj) 4 mg IVP Q4H PRN PRN Reason: Nausea/Vomiting Pantoprazole Sodium (Protonix Ec Tab) 20 mg PO 0730,1630 [facility] Last Admin: 03/19/17 16:30 Dose: 20 mg Potassium Chloride (Potassium Chloride Oral Soln) 40 meq PO Q1H [facility] Stop: 03/20/17 09:31 Thiamine HCl (Vitamin B1 Inj) 100 mg IV DAILY [facility] Last Admin: 03/19/17 15:15 Dose: 100 mg Tramadol HCl (Ultram) 50 mg PO Q8H PRN PRN Reason: Pain, severe (8-10) Last Admin: 03/19/17 22:30 Dose: 50 mg Ursodiol (Actigall) 300 mg PO BID [facility] Last Admin: 03/19/17 19:16 Dose: 300 mg - Labs Labs: 03/20/17 07:00 03/20/17 07:00 PT 14.2 Seconds (9.9-11.8) H 03/19/17 09:32 INR 1.31 (0.93-1.08) H 03/19/17 09:32 APTT 29.2 Seconds (23.7-30.8) 03/19/17 09:32 - Constitutional Appears: Non-toxic, No Acute Distress - Head Exam Head Exam: ATRAUMATIC, NORMAL INSPECTION, NORMOCEPHALIC - Eye Exam Eye Exam: EOMI, PERRL - ENT Exam ENT Exam: Mucous Membranes Moist - Respiratory Exam Respiratory Exam: Clear to Ausculation Bilateral. absent: Rales, Rhonchi, Wheezes - Cardiovascular Exam Cardiovascular Exam: RRR, +S1, +S2. absent: Gallop, Rubs - GI/Abdominal Exam GI & Abdominal Exam: Distended, Soft, Tenderness. absent: Firm, Guarding, Rigid Additional comments: ascites - Neurological Exam Neurological Exam: Alert, Awake, Oriented x3 - Psychiatric Exam Psychiatric exam: Normal Affect, Normal Mood - Skin Skin Exam: Dry, Intact, Normal Color, Warm Assessment and Plan - Assessment and Plan (Free Text) Plan: 61F w/ history of fatty liver disease, rheumatoid arthritis and hiatial hernia presents c/o abdominal pain -No acute surgical intervention recommended at this time -Recommend considering paracentesis by IR given significant ascites -Doppler pending for evaluation of hepatic and portal vein; will follow up -MRA pending however patient reports significant claustrophobia -CT abd/pelvis reviewed; revealed severe ascites, large gallstone, mural thickening and edema consistent with colitis -Continue medical management as per primary team -Follow up GI recommendations Case discussed with attending, Dr. Girma Bonner PGY1 <Jerry Rayo - Last Filed: 03/25/17 10:36> Objective - Vital Signs/Intake and Output Vital Signs (last 24 hours): Temp Pulse Resp BP Pulse Ox 98.7 F 75 20 105/73 94 L 03/22/17 06:00 03/22/17 10:00 03/22/17 06:00 03/22/17 09:52 03/22/17 06:00 - Labs Labs: 03/22/17 07:00 03/22/17 07:00 PT 14.2 Seconds (9.9-11.8) H 03/19/17 09:32 INR 1.31 (0.93-1.08) H 03/19/17 09:32 APTT 29.2 Seconds (23.7-30.8) 03/19/17 09:32 Assessment and Plan - Assessment and Plan (Free Text) Plan: Dx Hepatic Cirrhossis Exacerbation Portal vein thrombosis Cholelithiasis(Not Infected now) This consult done under my direct supervision(Not Dr White--error!) Veronika Rayo MD FACS
[2017-03-20] MEDS: Magnesium Sulfate 2 GM in Sodium Chloride 0.9% 100 ML IVPB SCH ×2 (09:01→12:03)
[2017-03-20] MEDS: Thiamine 100 mg/ml Inj IV SCH (09:05)
[2017-03-20] MEDS: Pantoprazole 20 mg EC Tab PO SCH ×2 (09:05→17:54)
[2017-03-20] MEDS: Potassium Chloride 40 mEq/30 ml LIQ UD PO SCH ×2 (09:10→10:04)
[2017-03-20 09:39] LABS: FREE T4 1.77 ng/dL (0.78-2.19); T4 12.4 ug/dL (5.5-11.0)
[2017-03-20 09:53] LABS: THYROID STIMULATING HORMONE 7.83 mIU/mL (0.46-4.68)
[2017-03-20] MEDS ORDERED: Potassium Chloride 20 mEq ER Tab PO ONE (10:04)
[2017-03-20] MEDS: Albuterol-Ipratrop 3 mg / 0.5 (3 ml) UD IH SCH ×2 (13:48→19:36)
[2017-03-20 13:55] LABS: FOLATE 12.6 ng/mL
[2017-03-20 14:33] LABS: VITAMIN D 25 OH TOTAL < 12.8 NG/ML (30.0-100.0)
--- NOTE | 2017-03-20 17:12 | CP.PCM.CON ---
History of Present Illness - History of Present Illness History of Present Illness: 61 year old female with PMH of alcoholism, history of alcoholic hepatitis, history of pancreatitis, cholelithiasis, history of supraventricular tachycardia , hiatal hernia, esophageal varices came in to [facility] because of abdominal pain for about a week, which has continued and somewhat worsened in the past few days. The patient states it started in the right upper quadrant but is now also in the lower quadrants. The patient also states that she has been having nausea, but no vomiting, no diarrhea. The patient denies fever or chills, no headache or dizziness, no SOB, no chest pain, no cough or rhinorrhea , no sore throat, no dysuria. In the ED, CT scan of the abdomen and pelvis revealed possible colitis. Infectious Diseases consult is requested to further evaluate and manage. Review of Systems - Review of Systems All systems: reviewed and no additional remarkable complaints except (as per HPI ) Past Patient History - Infectious Disease Hx of Infectious Diseases: None - Tetanus Immunizations Tetanus Immunization: Unknown - Past Medical History & Family History Past Medical History?: Yes - Past Social History Smoking Status: Current Some Days Smoker - CARDIAC Hx Cardia Arrhythmia: Yes (SVT) Hx Pacemaker: No - NEUROLOGICAL Hx Paralysis: No - HEMATOLOGICAL/ONCOLOGICAL Hx Hepatitis A: Yes Other/Comment: hypothermia - MUSCULOSKELETAL/RHEUMATOLOGICAL Hx Falls: No - GASTROINTESTINAL Hx Gastrointestinal Disorders: (hiatal hernia) Other/Comment: galstones - PSYCHIATRIC Hx Depression: No Hx Emotional Abuse: No Hx Physical Abuse: No Hx Substance Use: No - SURGICAL HISTORY Other/Comment: heart ablasion - ANESTHESIA Hx Anesthesia Reactions: No Meds Allergies/Adverse Reactions: Allergies Allergy/AdvReac Type Severity Reaction Status Date / Time No Known Allergies Allergy Verified 03/19/17 08:23 - Medications Medications: Current Medications Folic Acid (Folic Acid) 1 mg PO DAILY [facility] Multivitamins/Vitamin C 10 ml/Thiamine HCl 100 mg/ Folic Acid 1 mg/ Sodium Chloride 1,011.2 mls @ 100 mls/hr IV .Q10H7M ONE Stop: 03/19/17 21:40 Last Admin: 03/19/17 13:35 Dose: 100 mls/hr Sodium Chloride (Sodium Chloride 0.9%) 1,000 mls @ 100 mls/hr IV .Q10H [facility] Piperacillin Sod/Tazobactam Sod (Zosyn 3.375 In Ns 100ml) 100 mls @ 200 mls/hr IVPB Q6 [facility] PRN Reason: Protocol Stop: 03/24/17 12:29 Nadolol (Corgard) 20 mg PO DAILY [facility] Nicotine (Nicoderm Cq) 1 patch TD DAILY [facility] Ondansetron HCl (Zofran Inj) 4 mg IVP Q4H PRN PRN Reason: Nausea/Vomiting Pantoprazole Sodium (Protonix Ec Tab) 20 mg PO 0730,1630 [facility] Thiamine HCl (Vitamin B1 Inj) 100 mg IV DAILY [facility] Ursodiol (Actigall) 300 mg PO BID [facility] Physical Exam - Constitutional Appears: Non-toxic, No Acute Distress - Head Exam Head Exam: NORMAL INSPECTION - ENT Exam ENT Exam: Mucous Membranes Moist - Neck Exam Neck exam: Negative for: Lymphadenopathy, Meningismus - Respiratory Exam Respiratory Exam: Decreased Breath Sounds - Cardiovascular Exam Cardiovascular Exam: +S1, +S2 - GI/Abdominal Exam GI & Abdominal Exam: Soft. absent: Tenderness Results - Vital Signs Recent Vital Signs: Last Vital Signs Temp 98.9 F 03/19/17 07:31 Pulse 99 H 03/19/17 11:35 Resp 18 03/19/17 11:35 BP 104/65 03/19/17 11:35 Pulse Ox 96 03/19/17 11:35 - Labs Result Diagrams: 03/20/17 07:00 03/20/17 07:00 Assessment & Plan - Assessment and Plan (Free Text) Plan: Assessment Abdominal pain, cannot rule out colitis alcoholic liver cirrhosis with espohageal varices and ascites alcoholism history of alcoholic hepatitis history of pancreatitis cholelithiasis history of supraventricular tachycardia hiatal hernia Plan Started patient on Zosyn pending ascitic fluid analysis when paracentesis is done, blood cx Will monitor clinically
[2017-03-20 17:24] LABS: BODY FLUID TYPE PERITONEAL/ASCITES
--- NOTE | 2017-03-20 17:42 | CP.PCM.PN ---
Subjective - Date & Time of Evaluation Date of Evaluation: 03/20/17 Time of Evaluation: 11:00 - Subjective Subjective: Seen and examined at bedside. No N/V, wants to eat, refuse clear liquid, abdominal present no acute distress. Awaiting paracentesis. Having BM, loose, no blood, refuse MRI abdomen. Objective - Vital Signs/Intake and Output Vital Signs (last 24 hours): Temp Pulse Resp BP Pulse Ox 97.6 F 84 22 108/64 93 L 03/20/17 08:01 03/20/17 09:05 03/20/17 08:01 03/20/17 09:05 03/20/17 08:01 Intake and Output: 03/20/17 03/20/17 06:59 18:59 Intake Total 2100 240 Balance 2100 240 - Medications Medications: Current Medications Albuterol/Ipratropium (Duoneb 3 Mg/0.5 Mg (3 Ml) Ud) 3 ml IH [id number] [facility] Last Admin: 03/20/17 13:48 Dose: Not Given Cholecalciferol (Vitamin D) 2,000 iu PO DAILY [facility] Folic Acid (Folic Acid) 1 mg PO DAILY [facility] Last Admin: 03/20/17 09:05 Dose: 1 mg Sodium Chloride (Sodium Chloride 0.9%) 1,000 mls @ 100 mls/hr IV .Q10H [facility] Last Admin: 03/19/17 22:00 Dose: Not Given Piperacillin Sod/Tazobactam Sod (Zosyn 3.375 In Ns 100ml) 100 mls @ 200 mls/hr IVPB Q6 [facility] PRN Reason: Protocol Stop: 03/26/17 18:01 Last Admin: 03/20/17 05:28 Dose: 200 mls/hr Nadolol (Corgard) 20 mg PO DAILY [facility] Last Admin: 03/20/17 09:05 Dose: 20 mg Nicotine (Nicoderm Cq) 1 patch TD DAILY [facility] Last Admin: 03/20/17 09:59 Dose: Not Given Ondansetron HCl (Zofran Inj) 4 mg IVP Q4H PRN PRN Reason: Nausea/Vomiting Pantoprazole Sodium (Protonix Ec Tab) 20 mg PO 0730,1630 [facility] Last Admin: 03/20/17 09:05 Dose: 20 mg Thiamine HCl (Vitamin B1 Inj) 100 mg IV DAILY [facility] Last Admin: 03/20/17 09:05 Dose: 100 mg Tramadol HCl (Ultram) 50 mg PO Q8H PRN PRN Reason: Pain, severe (8-10) Last Admin: 03/20/17 09:08 Dose: 50 mg Tramadol HCl (Ultram) 50 mg PO Q6H PRN PRN Reason: Pain, moderate (4-7) Ursodiol (Actigall) 300 mg PO BID [facility] Last Admin: 03/20/17 09:05 Dose: 300 mg - Labs Labs: 03/20/17 07:00 03/20/17 07:00 PT 14.2 Seconds (9.9-11.8) H 03/19/17 09:32 INR 1.31 (0.93-1.08) H 03/19/17 09:32 APTT 29.2 Seconds (23.7-30.8) 03/19/17 09:32 - Constitutional Appears: No Acute Distress - Head Exam Head Exam: NORMOCEPHALIC - Eye Exam Eye Exam: Normal appearance. absent: Scleral icterus - ENT Exam ENT Exam: Mucous Membranes Moist - Neck Exam Neck Exam: Normal Inspection - Respiratory Exam Respiratory Exam: Decreased Breath Sounds, NORMAL BREATHING PATTERN. absent: Rales, Wheezes, Respiratory Distress - Cardiovascular Exam Cardiovascular Exam: +S1, +S2 - GI/Abdominal Exam GI & Abdominal Exam: Distended, Soft, Tenderness, Normal Bowel Sounds. absent: Guarding (ascites), Rebound - Extremities Exam Extremities Exam: absent: Calf Tenderness, Pedal Edema - Neurological Exam Neurological Exam: Alert, Awake, Oriented x3 - Skin Skin Exam: Dry, Warm Assessment and Plan - Assessment and Plan (Free Text) Assessment: ASSESSMENT: Liver Cirrhosis 2 to ETOH N/V/D, Abdominal pain, r/o colitis Ascites Leukocytosis Grade I varices, portal hypertensive gastropathy H/O Chronic alcohol intake Cholelithiasis, not candidate for surgery H/O portal vein thrombosis PLAN: FU abdominal doppler cont IV antibiotics as per ID on Ursoidal continue PPI advance diet as tolerated monitor LFT for paracentesis. folic and thiamine Seen and discussed with Dr. Cullen.
[2017-03-20 18:12] LABS: BF GROSS APPEARANCE CLEAR (CLEAR)
[2017-03-20 18:13] LABS: BODY FLUID TOTAL COUNT 100 (0-0)
--- NOTE | 2017-03-20 18:54 | US ---
PROCEDURE: Ultrasound guided paracentesis. HISTORY: Alcoholic cirrhosis ascites with abdominal pain and distention. PHYSICIAN(S): Elias Mata MD. TECHNIQUE: The relative risks and indications for the procedure were explained to the patient and informed written consent obtained. Sonography of the abdomen was performed in a supine position. This revealed a small to moderate amount of non-loculated ascites, greatest in the right lower quadrant. A puncture site was selected and the area was prepped and draped in the usual sterile fashion. 1% Xylocaine was used to anesthetize the skin and soft tissues. A 7 [place] paracentesis catheter was trocared into the right lower quadrantand 2200 cc of yellow fluid aspirated. The appropriate labs were sent. IMPRESSION: Ultrasound-guided paracentesis in the right lower quadrant. 2200 cc of fluid were aspirated. Labs were sent
--- NOTE | 2017-03-20 19:04 | US ---
PROCEDURE: Portal vein duplex ultrasound. CLINICAL HISTORY: Alcoholic cirrhosis. Deteriorating liver function tests. Evaluate for portal vein thrombosis PHYSICIAN(S): Elias Mata M.D. FINDINGS: The exam is very limited. Liver parenchyma is heterogeneous, consistent with cirrhosis. The extrahepatic portal vein is small and not well visualized. The hepatic vein is hypertrophied. Limited imaging of the central patent veins are patent. The spleen is markedly enlarged. Small amount of ascites is noted in the upper abdomen. IMPRESSION: 1. The portal vein is small with blunted hepatopetal flow 2. Small amount of ascites in the upper abdomen. 3. Splenomegaly.
--- NOTE | 2017-03-20 19:19 | PN ---
DATE: 03/20/2017 The patient is seen today in room 365, bed 2. The patient is extremely noncompliant. The patient is refusing to take liquid diet ordered by the chemist food. The patient wants to eat regular food. The patient refuses MRI, despite offering of sedation, for evaluation of the hepatic mass. The patient is requesting more pain medication and requesting to increase the Ultram q. 6 hours. The patient is seen lying in the bed with the patient's nurse at bedside. The patient does not appear to be in any distress. PHYSICAL EXAMINATION: VITAL SIGNS: Vital signs reviewed. The patient's blood pressure is in low systolic 100s and diastolic 60s and 70s. Heart rate is a 89 to 84 to 76. The patient is afebrile. O2 sat 96%. HEAD: Normocephalic, atraumatic. HEENT: Shows pinkish, pale conjunctivae. Icteric sclerae. No oropharyngeal lesion. NECK: No neck rigidity. CHEST: Kyphosis. LUNGS: Shows occasional rhonchi upper lung present anteriorly which clears up with deep inspiration. CARDIOVASCULAR: S1, S2, regular rhythm. ABDOMEN: Shows tense ascites ____ diffuse, voluntary guarding, no rebound tenderness. Positive hepatomegaly. GENITALIA: Female. RECTAL: Deferred. EXTREMITIES: Shows no pitting edema. No calf tenderness. No Andrzej sign. Missing ANGELTIA stockings, missing SCDs despite my orders. NEUROLOGIC: The patient is alert, awake, oriented x 3. No asterixis noted. Cranial nerves II through XI are intact. GAIT: The patient refuses to be out of bed to chair. DIAGNOSTICS: Reviewed. The patient's sodium has corrected to normal sodium. Potassium is low at 2.9. Magnesium is low at 1.4. The patient's bilirubin is still elevated as well as AST, ALT are elevated. Vitamin D is 25, hydroxy less than 13. Thyroid panel is abnormal with elevated TSH and elevated total thyroxine. The patient's blood and urine culture results are still pending. The patient seen by the chemist food, their recommendations were reviewed and explained to the patient. The patient's case was discussed with Dr. Cullen. We are awaiting further and final recommendation by chemist food. IMPRESSION AND PLAN: 1. Abdominal pain. 2. Severe tense ascites. 3. Hepatic cirrhosis. 4. Alcoholic hepatitis with alcoholic cirrhosis. 5. Hyponatremia. 6. Hypokalemia. 7. Hypomagnesemia. 8. Probable and most likely urinary tract infection with pyuria, microscopic hematuria, bacteriuria. 9. Active nicotine and alcohol addiction and dependence. 10. Hyperbilirubinemia. 11. Transaminitis. 12. Hypokalemia. 13. Hypomagnesemia. 14. Hypovitaminosis D. 15. Questionable hepatic mass. 16. Urinary tract infection. 17. Status post hypernatremia. 18. Severe noncompliance and poor compliance. 19. Active nicotine and alcohol addiction and dependence. 20. History of portal hypertension and hypertensive gastropathy. 21. History of upper gastrointestinal bleeding. 1. Severe symptomatic Tense ascites with symptoms of nausea and vomiting. 2. Urinary tract infection with proteinuria, ketonuria, pyuria, hematuria, bacteriuria. 3. Tachycardia. 4. Hypotension. 5. Leukocytosis. 6. Macrocytosis. 7. Mild coagulopathy. 8. Hyponatremia. 9. Hyperbilirubinemia. 10. Transaminitis. 11. History of active nicotine and alcohol addiction and dependence. 12. Sinus tachycardia. 13. Hypertensive cardiovascular disease. 14. Moderate hiatal hernia. 15. Bibasilar consolidation and effusion. 16. Hepatic edema. 17. Large cholelithiasis. 18. Questionable colitis with colonic wall thickening and edema. 19. Severe ascites. 20. Hepatic fatty infiltration and hepatic steatosis. 21. Massive gallstone. 22. Probable left renal cyst. 23. Tachycardia. PLAN: At this time, patient is being seen by infectious disease, chemist food. The patient's further diagnostic and therapeutic intervention as per the orders in the [facility]. The patient has been ordered serial labs. The patient has been ordered physical therapy, occupational therapy, out of bed , ANGELITA stockings, SCDs. The patient's diet will be increased. The patient has been ordered DuoNeb nebulizer treatment. At present, the patient's further management is dependent upon the patient's clinical condition, hemodynamic status, and as per patient's response to therapeutic intervention, as per patient's diagnostic test results and as per recommendation by all the physicians involved in the care of the patient. At present, we are awaiting for interventional radiologist. The patient's overall prognosis is guarded to poor which has been extensively explained to the patient. At present, patient will be continued on the above therapeutic intervention as ordered. Dictated and electronically signed, not read. Juan Jose Enamorado MD cc: [id number] TT: 03/20/2017 19:18:48 Confirmation # [id number] Dictation # [id number] ANABEL
[2017-03-21] MEDS: Albuterol-Ipratrop 3 mg / 0.5 (3 ml) UD IH SCH ×4 (01:35→19:48)
--- NOTE | 2017-03-21 05:14 | PN ---
DATE: 03/20/2017 ADDENDUM This is an addendum to the progress report dictated by Jen Jerome APN. The patient is comfortable and wants to eat now. Abdomen, no tenderness. Denies any tenderness or any pain now. On examinatio n, the patient is jaundiced. On examination, ascites present. Extremities, mild edema present. LABORATORY DATA: Total bilirubin has come down from 6.4 to 4.7. Alkaline phosphatase is also showin g a downward trend and the patient did have previous workup including a CAT scan reviewed. The patie nt was planned to have the paracentesis earlier. IMPRESSION: This 61-year-old patient admitted with decompensated cirrhosis, probably secondary to he patitis C secondary to the alcohol use. The patient's repeat imaging study did not reveal any portal vein thrombosis at this time. The patient has been followed at the [facility]. The patien t did have grade I varices and cellulitis in the previous endoscopy. RECOMMEND: 1. To check Doppler of the portal vein. 2. Continue the ____. 3. The patient's gallstone appears to be large and partially calcified. She was evaluated by the [facility] rgical team in the past and appeared to be high risk. Will continue to closely follow up her care an d awaiting for the paracentesis at the time of examination. We will continue to follow up with the a scitic fluid analysis and continue the antibiotics. The patient did have a urine culture that showed no growth. Paracentesis fluid was sent also subsequently with 2100 mL of fluid removed. Sent for c fabiola and ____ studies. Thank you very much for allowing us to participate in the care of the patient. Barbara Cullen MD cc: [phone] TT: 03/21/2017 01:30:44 Confirmation # [id number] Dictation # [id number] 03/21/2017 04:13:45
[2017-03-21] MEDS: Piperacillin/Tazobact 3.375 gm 100 ML IVPB SCH ×4 (05:45→17:27)
[2017-03-21] MEDS: Sodium Chloride 0.9% 1,000 ML IV SCH ×2 (05:46→17:38)
[2017-03-21 07:20] LABS: ADD MANUAL DIFF? NO
[2017-03-21 07:28] LABS: BASO # 0.04 K/mm3 (0.0-2.0); BASO % 0.5 % (0.0-3.0); EOS # 0.2 (0.0-0.7); EOS % 1.8 % (1.5-5.0); GRAN # 5.36 (1.4-6.5); GRAN % 64.3 % (50.0-68.0); HEMATOCRIT 32.5 % (36.0-48.0); LYMPH # 1.8 (1.2-3.4); LYMPH % 21.4 % (22.0-35.0); MEAN CELL VOLUME 108.3 fL (80.0-105.0); MEAN CORPUSCULAR HEMOGLOBIN 37.3 pg (25.0-35.0); MEAN CORPUSCULAR HGB CONC 34.5 g/dl (31.0-37.0); MEAN PLATELET VOLUME 10.5 fl (7.0-11.0); PLATELET COUNT 131 10^3/uL (120.0-450.0); WHITE BLOOD COUNT 8.3 10^3/ul (4.5-11.0)
[2017-03-21 07:34] LABS: ALB/GLOB RATIO 0.8 (1.1-1.8); ALKALINE PHOSPHATASE 141 U/L (38-133); ALT/SGPT 32 U/L (7-56); AST/SGOT 113 U/L (15-39); BILIRUBIN,DIRECT 2.7 mg/dL (0.0-0.4); BILIRUBIN,TOTAL 3.1 mg/dL (0.2-1.3); BLOOD UREA NITROGEN 7 mg/dL (7-21); CALCIUM 7.3 mg/dL (8.4-10.5); CARBON DIOXIDE 25 mmol/L (21-33); CHLORIDE 102 mmol/L (95-110); GFR AFRICAN-AMERICAN > 60; GLUCOSE,RANDOM 94 mg/dL (70-110); POTASSIUM 3.4 mmol/L (3.6-5.0); SODIUM 133 mmol/L (132-148); TOTAL PROTEIN 5.5 g/dL (5.8-8.3)
--- NOTE | 2017-03-21 08:45 | CP.PCM.PN ---
Subjective - Date & Time of Evaluation Date of Evaluation: 03/21/17 Time of Evaluation: 07:00 - Subjective Subjective: Surgery: Dr. Rayo Pt seen and examined. No acute events overnight. States she's feeling a lot better and was able to eat regular food last night which she tolerated without any problems. Denies F/C. Objective - Vital Signs/Intake and Output Vital Signs (last 24 hours): Temp Pulse Resp BP Pulse Ox 97.8 F 76 18 108/60 94 L 03/21/17 08:26 03/21/17 08:26 03/21/17 08:26 03/21/17 08:26 03/21/17 08:26 Intake and Output: 03/21/17 03/21/17 06:59 18:59 Intake Total 2880 Output Total 1 Balance 2879 - Medications Medications: Current Medications Albuterol/Ipratropium (Duoneb 3 Mg/0.5 Mg (3 Ml) Ud) 3 ml IH [id number] [facility] Last Admin: 03/21/17 07:38 Dose: Not Given Cholecalciferol (Vitamin D) 2,000 iu PO DAILY [facility] Last Admin: 03/20/17 22:09 Dose: 2,000 iu Folic Acid (Folic Acid) 1 mg PO DAILY [facility] Last Admin: 03/20/17 09:05 Dose: 1 mg Sodium Chloride (Sodium Chloride 0.9%) 1,000 mls @ 100 mls/hr IV .Q10H [facility] Last Admin: 03/21/17 05:46 Dose: 100 mls/hr Piperacillin Sod/Tazobactam Sod (Zosyn 3.375 In Ns 100ml) 100 mls @ 200 mls/hr IVPB Q6 [facility] PRN Reason: Protocol Stop: 03/26/17 18:01 Last Admin: 03/21/17 05:45 Dose: 200 mls/hr Nadolol (Corgard) 20 mg PO DAILY [facility] Last Admin: 03/20/17 09:05 Dose: 20 mg Nicotine (Nicoderm Cq) 1 patch TD DAILY [facility] Last Admin: 03/20/17 09:59 Dose: Not Given Ondansetron HCl (Zofran Inj) 4 mg IVP Q4H PRN PRN Reason: Nausea/Vomiting Pantoprazole Sodium (Protonix Ec Tab) 20 mg PO 0730,1630 [facility] Last Admin: 03/20/17 17:54 Dose: 20 mg Potassium Chloride (K-Dur 20 Meq Er Tab) 20 meq PO Q1H [facility] Stop: 03/21/17 10:31 Thiamine HCl (Vitamin B1 Inj) 100 mg IV DAILY [facility] Last Admin: 03/20/17 09:05 Dose: 100 mg Tramadol HCl (Ultram) 50 mg PO Q6H PRN PRN Reason: Pain, moderate (4-7) Last Admin: 03/21/17 05:44 Dose: 50 mg Ursodiol (Actigall) 300 mg PO BID [facility] Last Admin: 03/20/17 17:50 Dose: 300 mg - Labs Labs: 03/21/17 06:20 03/21/17 06:20 PT 14.2 Seconds (9.9-11.8) H 03/19/17 09:32 INR 1.31 (0.93-1.08) H 03/19/17 09:32 APTT 29.2 Seconds (23.7-30.8) 03/19/17 09:32 - Constitutional Appears: Well, No Acute Distress - Head Exam Head Exam: ATRAUMATIC, NORMOCEPHALIC - Eye Exam Eye Exam: Normal appearance - ENT Exam ENT Exam: Mucous Membranes Moist - Respiratory Exam Respiratory Exam: NORMAL BREATHING PATTERN - Cardiovascular Exam Cardiovascular Exam: RRR - GI/Abdominal Exam GI & Abdominal Exam: Distended, Soft. absent: Guarding, Tenderness, Rebound - Extremities Exam Extremities Exam: absent: Tenderness - Neurological Exam Neurological Exam: Alert, Awake, Oriented x3 - Skin Skin Exam: Dry, Warm Assessment and Plan - Assessment and Plan (Free Text) Assessment: 61F with cirrhosis & ascites s/p paracentesis Plan: - pt tolerating regular diet without any pain - no surgical intervention needed at this time - clear for DC from surgical standpoint - d/w Dr. Girma Chavez, PGY-2 Surgery
[2017-03-21] MEDS: Potassium Chloride 20 mEq ER Tab PO SCH ×3 (09:44→11:39)
[2017-03-21] MEDS: Pantoprazole 20 mg EC Tab PO SCH ×2 (09:44→17:27)
[2017-03-21] MEDS: Thiamine 100 mg/ml Inj IV SCH (09:52)
--- NOTE | 2017-03-21 10:37 | PN ---
DATE: 03/21/2017 The patient is seen sitting up in the bed in room 365, bed 2. The patient stated that she is feeling back to 100% better after having a paracentesis done yesterday. Overnight nurse's notes were reviewed. No adverse events documented. PHYSICAL EXAMINATION: VITAL SIGNS: T-max 98.9, pulse 76, 79, 78, 93. Blood pressure is 108/60, 108/ 64, 103/66, 104/65, 116/77. INTAKE AND OUTPUT: Intake 2880, output not documented correctly. HEAD: Normocephalic, atraumatic. HEENT: Shows pinkish, pale conjunctivae, icteric sclerae, no oropharyngeal lesion. NECK: No neck rigidity. CHEST: Kyphosis. LUNGS: Shows no rales, crackles, or wheezing. CARDIOVASCULAR: Shows S1, S2, regular rhythm. ABDOMEN: Significantly decreased protuberance and decreased ascites. GENITALIA: Female. RECTAL: Deferred. EXTREMITIES: Shows no pitting edema, no calf tenderness, no Homans' sign. NEUROLOGIC: The patient is alert, awake, oriented x 3. Cranial nerves II-XII intact. No asterixis noted. MUSCULOSKELETAL: Shows a body mass index of 25. VASCULAR: Palpable pulses. PSYCHIATRIC: Negative for anxiety, depression. Negative for auditory or visual hallucination. Negative for suicidal or homicidal ideation. VASCULAR: Palpable pulses. DIAGNOSTICS: 03/21: WBC 8.3, hemoglobin and hematocrit 11.2 and 32.5, MCV 108, platelets 131. Sodium 133, potassium 3.4, chloride 102, CO2 25, anion gap 9, BUN 7, creatinine 0.7, GFR greater than 60, glucose 94, calcium 7.3, magnesium is now 2.0, total bili is down to 3.1 from 6.4. Direct bili is down to 2.7 from 3.5. AST is down to 113 from 142. Alk phos is 141, down from 194. Total protein 5.5, albumin 2.5. Cholesterol 116, HDL 14. B12 953. Alpha fetoprotein is negative as 2.3. Vitamin D 25-hydroxy less than 12.8. TSH is elevated at 7.83 and T4 is 12.4. The patient had a paracentesis done of more than 2 liters. Urine drug screen positive for opiates and benzos. Microbiology cultures, urine and blood cultures are negative. Ascitic fluid culture results to follow. Thyroid ultrasound was done, preliminary report shows homogeneous bilateral thyroid lobe without any nodules documented. I am unable to open the repeat ultrasound of the abdomen. The patient's paracentesis , ultrasound was noted. The patient had ultrasound-guided paracentesis of 2.2 liters of fluid removed. IMPRESSION AND PLAN: 1. Severe symptomatic tense ascites with symptoms of nausea, vomiting. 2. Possible questionable urinary tract infection with proteinuria, ketonuria, pyuria, hematuria, bacteriuria. 3. Tachycardia. 4. Hypotension. 5. Tachycardia. 6. Active nicotine and alcohol addiction and dependence. 7. Leukocytosis. 8. Macrocytic anemia. 9. Mild coagulopathy. 10. Hyponatremia (resolved). 11. Hypokalemia. 12. Hypocalcemia. 13. Hypomagnesemia. 14. Hyperbilirubinemia and obstructive jaundice with transaminitis. 15. Protein malnutrition and hypoalbuminemia. 16. Decreased HDL of 14. 17. Hypovitaminosis D. 18. Abnormal thyroid function test with elevated TSH of 7.8 and elevated thyroxine T4 of 12.4. 19. Questionable and possible urinary tract infection with proteinuria, ketonuria, hematuria, pyuria, bacteriuria. 20. Status post ultrasound-guided paracentesis with removal of 2.2 liters of ascitic fluid. 21. Hypertrophic hepatic vein. 22. Ascites. 23. Small extrahepatic portal vein with blunted hepatopetal flow. 24. Splenomegaly. 25. Sinus tachycardia. 26. Left ventricular hypertrophy. 27. Hepatosplenomegaly. 28. Hepatic steatosis with fatty infiltration of the liver and echogenic liver. 29. Cholelithiasis and solitary large gallstone. 30. Left renal cyst. 31. Ascites. 32. Probable left renal cyst. 33. Moderate hiatal hernia. 34. Bibasilar consolidation with small pleural effusion. 35. Perihepatitis. 36. Large solitary gallstones of 2 cm x 3 cm. 37. Questionable colitis with colonic mural thickening and edema. 38. Active nicotine and alcohol addiction. 39. Poor compliance. 40. Alcoholic cirrhosis and hepatitis. 41. Decompensated alcoholic cirrhosis. 42. History of esophageal varices. 43. Severe tense ascites. 44. Hepatic cirrhosis. 45. Poor compliance. 46. Alcoholic cirrhosis. 47. History of esophageal varices and portal hypertensive gastropathy. 48. History of portal vein thrombosis. 49. History of duodenitis. 50. Poor compliance. 51. Transaminitis. 52. Tachycardia. 53. Questionable colitis with colonic wall thickening and edema. 54. Large cholelithiasis. 55. Hypertensive cardiovascular disease. 56. Mild coagulopathy. 57. Macrocytic anemia. 1. Abdominal pain. 2. Severe tense ascites. 3. Hepatic cirrhosis. 4. Alcoholic hepatitis with alcoholic cirrhosis. 5. Hyponatremia. 6. Hypokalemia. 7. Hypomagnesemia. 8. Probable and most likely urinary tract infection with pyuria, microscopic hematuria, bacteriuria. 9. Active nicotine and alcohol addiction and dependence. 10. Hyperbilirubinemia. 11. Transaminitis. 12. Hypokalemia. 13. Hypomagnesemia. 14. Hypovitaminosis D. 15. Questionable hepatic mass. 16. Urinary tract infection. 17. Status post hypernatremia. 18. Severe noncompliance and poor compliance. 19. Active nicotine and alcohol addiction and dependence. 20. History of portal hypertension and hypertensive gastropathy. 21. History of upper gastrointestinal bleeding. 1. Severe symptomatic Tense ascites with symptoms of nausea and vomiting. 2. Urinary tract infection with proteinuria, ketonuria, pyuria, hematuria, bacteriuria. 3. Tachycardia. 4. Hypotension. 5. Leukocytosis. 6. Macrocytosis. 7. Mild coagulopathy. 8. Hyponatremia. 9. Hyperbilirubinemia. 10. Transaminitis. 11. History of active nicotine and alcohol addiction and dependence. 12. Sinus tachycardia. 13. Hypertensive cardiovascular disease. 14. Moderate hiatal hernia. 15. Bibasilar consolidation and effusion. 16. Hepatic edema. 17. Large cholelithiasis. 18. Questionable colitis with colonic wall thickening and edema. 19. Severe ascites. 20. Hepatic fatty infiltration and hepatic steatosis. 21. Massive gallstone. 22. Probable left renal cyst. 23. Tachycardia. PLAN: At this time, patient has been ordered serial labs. The patient's ascitic fluid cultures are pending. CURRENT CONSULTATIONS: Gastroenterology, surgery, infectious disease, interventional radiology. CURRENT MEDICATIONS: 1. Actigall 300 mg twice a day. 2. Nadolol or Corgard 20 mg daily. 3. DuoNeb nebulizer every 6 hours. 4. Folic acid 1 mg daily. 5. The patient has been ordered potassium supplementation. 6. Nicotine patch 21 mg daily. 7. Protonix 20 mg twice a day. 8. IV fluids 0.9 normal saline at 100 mL an hour. 9. Tramadol or Ultram 50 mg q. 6 p.r.n. 10. Thiamine 100 mg IV daily. 11. Vitamin D3 2000 units daily. 12. Zofran 4 mg IV q. 4 p.r.n. 13. The patient is on Zosyn 3.375 grams IV q. 6. Heart healthy diet, out of bed, ANGELITA stockings, SCDs ordered. The patient was updated about her condition, diagnosis, test results, continuation of the IV antibiotic, continuation of the inpatient treatment was explained and discussed with the patient with recommendation from all the subspecialties involved in the care of the patient was explained to the patient in layman's language. All questions and concerns answered, but patient, after going over all the details, has stated that she does not want to stay in the hospital any further and she is threatening to sign out against medical advice, regarding which I have advised strictly against signing out medical advice, but patient is stating and threatening that she would most likely sign out against medical advice because she is a stubborn lady. At present, patient needs to be continued with the above therapeutic intervention. Dictated and electronically signed, not read. Juan Jose Enamorado MD cc: [id number] TT: 03/21/2017 10:36:21 Confirmation # [id number] Dictation # [id number] en MTDD
--- NOTE | 2017-03-21 13:48 | PN ---
DATE: 03/21/2017 The patient is tolerating a low fat diet, has had 2100 mL of clear yellow ascites removed yesterday b y the interventionalist (Dr. Elias Mata) and is feeling much better. An MRI was done of the vascula ture feeding the small bowel and the patient is essentially normal. The ultrasound examination demon strates advanced cirrhosis with marked architectural change and a large, more than 3 cm gallstone wit hin the gallbladder wall. The patient had a previous history in 2013 of a portal vein thrombosis and on careful questioning, does not feel that the ascites is increasing significantly recently that zen ht be due to a rethrombosis of a canalized portal vein. The patient is doing adequately, is not jose mmended for surgery at this point, is advised that alcohol would increase the swelling in the liver a nd might worsen the symptomatology and get more ascites and pain, and she claims that she is aware of all this. In terms of additional workup, a stat alpha fetoprotein is ordered to completely confirm the absence of a hepatic lesion. The patient has been advised to call after discharge if there are any further problems. This dictation will be electronically signed without being read. Jerry Rayo MD cc: [phone] TT: 03/21/2017 13:48:13 Confirmation # [id number] Dictation # [id number] en
--- NOTE | 2017-03-21 13:55 | CP.PCM.PN ---
Subjective - Date & Time of Evaluation Date of Evaluation: 03/21/17 Time of Evaluation: 10:00 - Subjective Subjective: Seen and examined at bedside, s/p paracentesis yesterday with relief, removed 2100 cc ascitic fluid. Tolerating oral intake, no diarrhea having formed stool. no bleeding. No abdominal pain. Abdominal doppler, show portal vein is small and blunted hepatopetal flow. Objective - Vital Signs/Intake and Output Vital Signs (last 24 hours): Temp Pulse Resp BP Pulse Ox 97.8 F 76 18 108/60 94 L 03/21/17 08:26 03/21/17 09:44 03/21/17 08:26 03/21/17 09:44 03/21/17 08:26 Intake and Output: 03/21/17 03/21/17 06:59 18:59 Intake Total 2880 Output Total 1 Balance 2879 - Medications Medications: Current Medications Albuterol/Ipratropium (Duoneb 3 Mg/0.5 Mg (3 Ml) Ud) 3 ml IH [id number] [facility] Last Admin: 03/21/17 13:14 Dose: Not Given Cholecalciferol (Vitamin D) 2,000 iu PO DAILY [facility] Last Admin: 03/21/17 09:44 Dose: 2,000 iu Folic Acid (Folic Acid) 1 mg PO DAILY [facility] Last Admin: 03/21/17 09:44 Dose: 1 mg Sodium Chloride (Sodium Chloride 0.9%) 1,000 mls @ 100 mls/hr IV .Q10H [facility] Last Admin: 03/21/17 05:46 Dose: 100 mls/hr Piperacillin Sod/Tazobactam Sod (Zosyn 3.375 In Ns 100ml) 100 mls @ 200 mls/hr IVPB Q6 [facility] PRN Reason: Protocol Stop: 03/26/17 18:01 Last Admin: 03/21/17 12:04 Dose: 200 mls/hr Nadolol (Corgard) 20 mg PO DAILY [facility] Last Admin: 03/21/17 09:44 Dose: 20 mg Nicotine (Nicoderm Cq) 1 patch TD DAILY [facility] Last Admin: 03/21/17 10:37 Dose: Not Given Ondansetron HCl (Zofran Inj) 4 mg IVP Q4H PRN PRN Reason: Nausea/Vomiting Pantoprazole Sodium (Protonix Ec Tab) 20 mg PO 0730,1630 [facility] Last Admin: 03/21/17 09:44 Dose: 20 mg Thiamine HCl (Vitamin B1 Inj) 100 mg IV DAILY [facility] Last Admin: 03/21/17 09:52 Dose: 100 mg Tramadol HCl (Ultram) 50 mg PO Q6H PRN PRN Reason: Pain, moderate (4-7) Last Admin: 03/21/17 11:45 Dose: 50 mg Ursodiol (Actigall) 300 mg PO BID [facility] Last Admin: 03/21/17 09:44 Dose: 300 mg - Labs Labs: 03/21/17 06:20 03/21/17 06:20 PT 14.2 Seconds (9.9-11.8) H 03/19/17 09:32 INR 1.31 (0.93-1.08) H 03/19/17 09:32 APTT 29.2 Seconds (23.7-30.8) 03/19/17 09:32 - Constitutional Appears: No Acute Distress - Head Exam Head Exam: NORMOCEPHALIC - Eye Exam Eye Exam: Normal appearance, Scleral icterus - ENT Exam ENT Exam: Mucous Membranes Moist - Neck Exam Neck Exam: Normal Inspection - Respiratory Exam Respiratory Exam: Clear to Ausculation Bilateral, NORMAL BREATHING PATTERN. absent: Respiratory Distress - Cardiovascular Exam Cardiovascular Exam: +S1, +S2 - GI/Abdominal Exam GI & Abdominal Exam: Soft, Normal Bowel Sounds. absent: Distended, Guarding, Tenderness, Rebound Additional comments: s/p paracentesis, site intact. - Extremities Exam Extremities Exam: absent: Calf Tenderness, Pedal Edema Assessment and Plan - Assessment and Plan (Free Text) Assessment: ASSESSMENT: Liver Cirrhosis 2 to ETOH N/V/D, Abdominal pain, r/o colitis Ascites, s/p paracentesis Leukocytosis Grade I varices, portal hypertensive gastropathy H/O Chronic alcohol intake Cholelithiasis, not candidate for surgery H/O portal vein thrombosis PLAN: FU abdominal doppler cont IV antibiotics as per ID on Ursoidal continue PPI on heart healthy monitor LFT, improving slowly folic and thiamine discuss FU at [facility], last visit was October 2016, she verbalized she is to make an appt. Seen and discussed with Dr. Cullen.
--- NOTE | 2017-03-21 14:57 | US ---
HISTORY: abn tft/??nodules TECHNIQUE: Sonographic evaluation of the thyroid gland. COMPARISON: FINDINGS: RIGHT LOBE: Measures cm. Normal echotexture and flow. Nodules: None LEFT LOBE: Measures cm. Normal echotexture and flow. Nodules: None ISTHMUS: Measures cm. Normal echotexture and flow. Nodules: None OTHER FINDINGS: None . IMPRESSION: Unremarkable thyroid sonogram.
--- NOTE | 2017-03-21 16:50 | CP.PCM.PN ---
Subjective - Date & Time of Evaluation Date of Evaluation: 03/21/17 Time of Evaluation: 11:20 - Subjective Subjective: Had paracentesis done, no fevers, less abdominal pain. Objective - Vital Signs/Intake and Output Vital Signs (last 24 hours): Temp Pulse Resp BP Pulse Ox 97.8 F 76 18 108/60 94 L 03/21/17 08:26 03/21/17 09:44 03/21/17 08:26 03/21/17 09:44 03/21/17 08:26 Intake and Output: 03/21/17 03/21/17 06:59 18:59 Intake Total 2880 600 Output Total 1 Balance 2879 600 - Medications Medications: Current Medications Albuterol/Ipratropium (Duoneb 3 Mg/0.5 Mg (3 Ml) Ud) 3 ml IH [id number] [facility] Last Admin: 03/21/17 13:14 Dose: Not Given Cholecalciferol (Vitamin D) 2,000 iu PO DAILY [facility] Last Admin: 03/21/17 09:44 Dose: 2,000 iu Folic Acid (Folic Acid) 1 mg PO DAILY [facility] Last Admin: 03/21/17 09:44 Dose: 1 mg Sodium Chloride (Sodium Chloride 0.9%) 1,000 mls @ 100 mls/hr IV .Q10H [facility] Last Admin: 03/21/17 05:46 Dose: 100 mls/hr Piperacillin Sod/Tazobactam Sod (Zosyn 3.375 In Ns 100ml) 100 mls @ 200 mls/hr IVPB Q6 [facility] PRN Reason: Protocol Stop: 03/26/17 18:01 Last Admin: 03/21/17 12:04 Dose: 200 mls/hr Nadolol (Corgard) 20 mg PO DAILY [facility] Last Admin: 03/21/17 09:44 Dose: 20 mg Nicotine (Nicoderm Cq) 1 patch TD DAILY [facility] Last Admin: 03/21/17 10:37 Dose: Not Given Ondansetron HCl (Zofran Inj) 4 mg IVP Q4H PRN PRN Reason: Nausea/Vomiting Pantoprazole Sodium (Protonix Ec Tab) 20 mg PO 0730,1630 [facility] Last Admin: 03/21/17 09:44 Dose: 20 mg Thiamine HCl (Vitamin B1 Inj) 100 mg IV DAILY [facility] Last Admin: 03/21/17 09:52 Dose: 100 mg Tramadol HCl (Ultram) 50 mg PO Q6H PRN PRN Reason: Pain, moderate (4-7) Last Admin: 03/21/17 11:45 Dose: 50 mg Ursodiol (Actigall) 300 mg PO BID [facility] Last Admin: 03/21/17 09:44 Dose: 300 mg - Labs Labs: 03/21/17 06:20 03/21/17 06:20 PT 14.2 Seconds (9.9-11.8) H 03/19/17 09:32 INR 1.31 (0.93-1.08) H 03/19/17 09:32 APTT 29.2 Seconds (23.7-30.8) 03/19/17 09:32 - Constitutional Appears: Non-toxic, No Acute Distress - Head Exam Head Exam: NORMAL INSPECTION - ENT Exam ENT Exam: Mucous Membranes Moist - Neck Exam Neck Exam: absent: Lymphadenopathy, Meningismus - Respiratory Exam Respiratory Exam: Decreased Breath Sounds - Cardiovascular Exam Cardiovascular Exam: +S1, +S2 - GI/Abdominal Exam GI & Abdominal Exam: Soft. absent: Tenderness Assessment and Plan - Assessment and Plan (Free Text) Plan: Assessment Abdominal pain, cannot rule out colitis alcoholic liver cirrhosis with espohageal varices and ascites S/P paracentesis, unlikely SBP alcoholism history of alcoholic hepatitis history of pancreatitis cholelithiasis history of supraventricular tachycardia hiatal hernia Plan continue Zosyn day 2 for the colitis; follow up ascitic fluid analysis and cx; blood cx are negative Will monitor clinically
[2017-03-21 18:17] VITALS: RESP 20
[2017-03-22] MEDS: Albuterol-Ipratrop 3 mg / 0.5 (3 ml) UD IH SCH ×3 (01:44→13:36)
[2017-03-22 07:40] LABS: ADD MANUAL DIFF? NO
[2017-03-22 07:52] LABS: BASO # 0.03 K/mm3 (0.0-2.0); BASO % 0.3 % (0.0-3.0); EOS # 0.2 (0.0-0.7); EOS % 1.7 % (1.5-5.0); GRAN # 5.04 (1.4-6.5); GRAN % 58.2 % (50.0-68.0); LYMPH # 2.3 (1.2-3.4); LYMPH % 26.2 % (22.0-35.0); MEAN CELL VOLUME 109.3 fL (80.0-105.0); MEAN CORPUSCULAR HEMOGLOBIN 36.3 pg (25.0-35.0); MEAN CORPUSCULAR HGB CONC 33.2 g/dl (31.0-37.0); MEAN PLATELET VOLUME 10.6 fl (7.0-11.0); MONO # 1.2 (0.1-0.6); MONO % 13.6 % (1.0-6.0); PLATELET COUNT 138 10^3/uL (120.0-450.0); RED CELL DISTRIBUTION WIDTH 14.2 % (11.5-14.5); WHITE BLOOD COUNT 8.7 10^3/ul (4.5-11.0)
[2017-03-22 08:07] LABS: GFR AFRICAN-AMERICAN > 60
[2017-03-22] MEDS: Pantoprazole 20 mg EC Tab PO SCH ×2 (08:30→16:07)
[2017-03-22 08:36] LABS: ALB/GLOB RATIO 0.8 (1.1-1.8); ALKALINE PHOSPHATASE 142 U/L (38-133); ALT/SGPT 36 U/L (7-56); AST/SGOT 123 U/L (15-39); BILIRUBIN,DIRECT 2.7 mg/dL (0.0-0.4); BILIRUBIN,TOTAL 3.2 mg/dL (0.2-1.3); BLOOD UREA NITROGEN 7 mg/dL (7-21); CALCIUM 7.5 mg/dL (8.4-10.5); CARBON DIOXIDE 23 mmol/L (21-33); CHLORIDE 106 mmol/L (95-110); GLUCOSE,RANDOM 71 mg/dL (70-110); MAGNESIUM 1.9 mg/dL (1.7-2.2); POTASSIUM 4.1 mmol/L (3.6-5.0); SODIUM 133 mmol/L (132-148); TOTAL PROTEIN 5.7 g/dL (5.8-8.3)
[2017-03-22 08:48] VITALS: BP 105/73; TEMP 98.7; O2SAT 94
[2017-03-22] MEDS: Thiamine 100 mg/ml Inj IV SCH (09:51)
[2017-03-22] MEDS: Sodium Chloride 0.9% 1,000 ML IV SCH (13:00)
[2017-03-22] MEDS: Piperacillin/Tazobact 3.375 gm 100 ML IVPB SCH (13:02)
--- NOTE | 2017-03-22 13:47 | PN ---
DATE: 03/22/2017 The patient is in bed in no acute distress, nontoxic. PHYSICAL EXAMINATION: VITAL SIGNS: Temperature is 98, blood pressure is 105/70, respiratory rate of 16. HEENT: Unremarkable. NECK: Supple. LUNGS: Decreased breath sounds. HEART: Normal S1, S2. ABDOMEN: Soft, nontender. LABORATORY DATA: Reveals a white count of 8.7, hemoglobin of 11 and platelets of 138. BUN of 7, cre atinine of 0.7. Urinalysis is noted. Microbiology reveals the ascitic fluid is noted, no growth. U rine culture is negative. On the Gram stain, no organism is seen in the ascitic fluid, no fungal torrey ment. Blood cultures are negative. Urine cultures are negative. There were 74 WBCs in the fluid, 1 2% neutrophils, not consistent with spontaneous bacterial peritonitis. The patient is on Zosyn. ASSESSMENT AND PLAN: A 61-year-old female admitted with abdominal pain and alcoholic liver cirrhosis , esophageal varices, doing better today. She wants to be discharged. Day #3 of Zosyn, will switch to p.o. Augmentin with negative ascitic fluid workup, 875 mg p.o. b.i.d. of Augmentin x 7 days. Dani Guido MD cc: [phone] TT: 03/22/2017 13:47:20 Confirmation # [id number] Dictation # [id number] cn
[2017-03-22 14:06] VITALS: PULSE 75
[2017-03-22] MEDS ORDERED: Amoxicillin-Clav 875-125 mg Tab PO SCH (22:00)
--- NOTE | 2017-03-23 01:10 | CP.PCM.PN ---
Subjective - Date & Time of Evaluation Date of Evaluation: 03/22/17 Time of Evaluation: 11:00 - Subjective Subjective: No N/V or abdominal pain. Feel better, Tolerating oral intake. No acute overnight events. Objective - Vital Signs/Intake and Output Vital Signs (last 24 hours): Temp Pulse Resp BP Pulse Ox 98.7 F 75 20 105/73 94 L 03/22/17 06:00 03/22/17 10:00 03/22/17 06:00 03/22/17 09:52 03/22/17 06:00 - Labs Labs: 03/22/17 07:00 03/22/17 07:00 PT 14.2 Seconds (9.9-11.8) H 03/19/17 09:32 INR 1.31 (0.93-1.08) H 03/19/17 09:32 APTT 29.2 Seconds (23.7-30.8) 03/19/17 09:32 - Constitutional Appears: No Acute Distress - Head Exam Head Exam: NORMOCEPHALIC - Eye Exam Eye Exam: Scleral icterus - ENT Exam ENT Exam: Mucous Membranes Moist - Neck Exam Neck Exam: Normal Inspection - Respiratory Exam Respiratory Exam: NORMAL BREATHING PATTERN - Cardiovascular Exam Cardiovascular Exam: +S1, +S2 - GI/Abdominal Exam GI & Abdominal Exam: Distended, Soft, Normal Bowel Sounds - Extremities Exam Extremities Exam: Normal Capillary Refill, Normal Inspection - Neurological Exam Neurological Exam: Alert, Awake, Oriented x3 Assessment and Plan - Assessment and Plan (Free Text) Assessment: IMPRESSION: This 61-year-old patient admitted with decompensated cirrhosis, probably secondary to hepatitis C secondary to the alcohol use. The patient's repeat imaging study did not reveal any portal vein thrombosis at this time. The patient has been followed at the [facility]. The patient did have grade I varices and cellulitis in the previous endoscopy. The patient's gallstone appears to be large and partially calcified. She was evaluated by the surgical team in the past and appeared to be high risk. Paracentesis fluid was sent also subsequently with 2100 mL of fluid removed. PLAN: continue antibiotics trend LFT continue PPI discuss FU [facility]. last appt was 10/2016 continue Ursodiol Plan: merlin
--- NOTE | 2017-03-25 08:22 | DS ---
The patient's all IV antibiotics are stopped. The patient has improved significantly since discharge. The patient was seen in room 365, bed 2. The patient is comfortable. Overnight nurses' notes were reviewed. The patient was much cooperative today. PHYSICAL EXAMINATION: VITAL SIGNS: T-max 98.7, pulse 75-82, blood pressure 105/73, respiration 20, O2 sat is 94% to 96%. HEAD: Normocephalic, atraumatic. HEENT: Shows pinkish, pale conjunctivae, icteric sclerae. No oropharyngeal lesion. NECK: No neck rigidity. CHEST: Kyphosis. LUNGS: Shows no rales, crackles, or wheezing. Occasional rhonchi upper lung dee. CARDIOVASCULAR: Shows S1, S2, regular rhythm. ABDOMEN: Slightly protuberant, significantly decreased ascites and protuberance after paracentesis. GENITALIA: Female. RECTAL: Deferred. EXTREMITIES: Shows no pitting edema, no calf tenderness, no Homans' sign. NEUROLOGIC: The patient is alert, awake, oriented x 3. Cranial nerves II-XII intact. No asterixis noted. Body mass index is 25.1. GAIT: Not tested. VASCULAR: Palpable pulses. PSYCHIATRIC: Negative. BODY MASS INDEX: 25. DIAGNOSTICS: On 03/22: WBC 8.7, hemoglobin and hematocrit 11.3 and , MCV 109, platelets 138. Sodium 133, potassium 4.1, chloride 106, CO2 of 23, anion gap 8, BUN 7, creatinine 0.7, GFR greater than 60, glucose 71, calcium 7.5, magnesium 1.9, total bilirubin 3.2, direct bili 2.7, AST 123, ALT 26, alk phos 142, total protein 5.7, albumin 2.5. All cultures are negative; blood, urine and ascitic fluid cultures are negative. The patient's thyroid ultrasound was unremarkable. The patient was seen by Dr. Guido today. The patient was switched over to p.o. Augmentin. FINAL IMPRESSION, PLAN AND DISCHARGE DIAGNOSES: 1. Severe symptomatic tense ascites with symptoms of nausea and vomiting. 2. Status post ultrasound-guided paracentesis with removal of more than 2200 mL of ascitic fluid. 3. Questionable and probable urinary tract infection with proteinuria, ketonuria, pyuria, hematuria, bacteriuria. 4. Hypertension. 5. Tachycardia. 6. Leukocytosis with granulocytosis. 7. Possible systemic inflammatory response syndrome. 8. Transient hypoxemia. 9. Active alcohol and nicotine addiction and dependence. 10. Leukocytosis. 11. Macrocytic anemia. 11. Hyponatremia. 12. Hypokalemia. 13. Hypomagnesemia. 14. Hyperbilirubinemia and transaminitis. 15. Hypoalbuminemia. 16. Hypovitaminosis D. 17. Abnormal thyroid function test with elevated TSH of 7.8 and elevated thyroxin of 12.4. 18. Hepatosplenomegaly. 19. Hypertrophic hepatic vein. 20. Splenomegaly. 21. Small portal vein with blunted hepatopetal flow. 22. Hepatic steatosis. 23. Cholelithiasis. 24. Severe noncompliance and poor compliance. 25. Alcoholic cirrhosis with esophageal varices. 26. Cholelithiasis. 27. Alcoholic hepatic cirrhosis. 28. History of varices. 1. Severe symptomatic tense ascites with symptoms of nausea, vomiting. 2. Possible questionable urinary tract infection with proteinuria, ketonuria, pyuria, hematuria, bacteriuria. 3. Tachycardia. 4. Hypotension. 5. Tachycardia. 6. Active nicotine and alcohol addiction and dependence. 7. Leukocytosis. 8. Macrocytic anemia. 9. Mild coagulopathy. 10. Hyponatremia (resolved). 11. Hypokalemia. 12. Hypocalcemia. 13. Hypomagnesemia. 14. Hyperbilirubinemia and obstructive jaundice with transaminitis. 15. Protein malnutrition and hypoalbuminemia. 16. Decreased HDL of 14. 17. Hypovitaminosis D. 18. Abnormal thyroid function test with elevated TSH of 7.8 and elevated thyroxine T4 of 12.4. 19. Questionable and possible urinary tract infection with proteinuria, ketonuria, hematuria, pyuria, bacteriuria. 20. Status post ultrasound-guided paracentesis with removal of 2.2 liters of ascitic fluid. 21. Hypertrophic hepatic vein. 22. Ascites. 23. Small extrahepatic portal vein with blunted hepatopetal flow. 24. Splenomegaly. 25. Sinus tachycardia. 26. Left ventricular hypertrophy. 27. Hepatosplenomegaly. 28. Hepatic steatosis with fatty infiltration of the liver and echogenic liver. 29. Cholelithiasis and solitary large gallstone. 30. Left renal cyst. 31. Ascites. 32. Probable left renal cyst. 33. Moderate hiatal hernia. 34. Bibasilar consolidation with small pleural effusion. 35. Perihepatitis. 36. Large solitary gallstones of 2 cm x 3 cm. 37. Questionable colitis with colonic mural thickening and edema. 38. Active nicotine and alcohol addiction. 39. Poor compliance. 40. Alcoholic cirrhosis and hepatitis. 41. Decompensated alcoholic cirrhosis. 42. History of esophageal varices. 43. Severe tense ascites. 44. Hepatic cirrhosis. 45. Poor compliance. 46. Alcoholic cirrhosis. 47. History of esophageal varices and portal hypertensive gastropathy. 48. History of portal vein thrombosis. 49. History of duodenitis. 50. Poor compliance. 51. Transaminitis. 52. Tachycardia. 53. Questionable colitis with colonic wall thickening and edema. 54. Large cholelithiasis. 55. Hypertensive cardiovascular disease. 56. Mild coagulopathy. 57. Macrocytic anemia. 1. Abdominal pain. 2. Severe tense ascites. 3. Hepatic cirrhosis. 4. Alcoholic hepatitis with alcoholic cirrhosis. 5. Hyponatremia. 6. Hypokalemia. 7. Hypomagnesemia. 8. Probable and most likely urinary tract infection with pyuria, microscopic hematuria, bacteriuria. 9. Active nicotine and alcohol addiction and dependence. 10. Hyperbilirubinemia. 11. Transaminitis. 12. Hypokalemia. 13. Hypomagnesemia. 14. Hypovitaminosis D. 15. Questionable hepatic mass. 16. Urinary tract infection. 17. Status post hypernatremia. 18. Severe noncompliance and poor compliance. 19. Active nicotine and alcohol addiction and dependence. 20. History of portal hypertension and hypertensive gastropathy. 21. History of upper gastrointestinal bleeding. 1. Severe symptomatic Tense ascites with symptoms of nausea and vomiting. 2. Urinary tract infection with proteinuria, ketonuria, pyuria, hematuria, bacteriuria. 3. Tachycardia. 4. Hypotension. 5. Leukocytosis. 6. Macrocytosis. 7. Mild coagulopathy. 8. Hyponatremia. 9. Hyperbilirubinemia. 10. Transaminitis. 11. History of active nicotine and alcohol addiction and dependence. 12. Sinus tachycardia. 13. Hypertensive cardiovascular disease. 14. Moderate hiatal hernia. 15. Bibasilar consolidation and effusion. 16. Hepatic edema. 17. Large cholelithiasis. 18. Questionable colitis with colonic wall thickening and edema. 19. Severe ascites. 20. Hepatic fatty infiltration and hepatic steatosis. 21. Massive gallstone. 22. Probable left renal cyst. 23. Tachycardia. PLAN: At this time, the patient has been cleared by all subspecialties. The patient is to be discharged home. DISCHARGE MEDICATIONS: 1. Augmentin 875 twice a day for 7 days. 2. Vitamin D3 2000 units daily. 3. Corgard 20 mg daily. 4. Nicotine patch 21 mg daily. 5. Protonix 40 mg daily or 20 mg twice a day. 6. The patient is to resume Ultram 50 mg p.r.n. and Actigall 300 twice a day. DISCHARGE DISPOSITION: The patient is discharged home with discharge follow up with Dr. Luther within 1 week. DISCHARGE MEDICATIONS: As per updated ordered script. The patient was strictly advised about cessation of smoking and alcohol. The patient was advised outpatient followup at [facility] as advised by the gastroenterology. During this hospitalization, the patient was extensively explained about the details of her medical condition, diagnosis, test results, recommendations by all physicians involved in the care of the patient was explained to the patient at length and all questions and concerns answered. Time spent in the entire discharge process more than 45 minutes. Dictated and electronically signed, not read. Juan Jose Enamorado MD cc: [id number] TT: 03/22/2017 20:38:40 jayden LITTLE
[2017-03-26 18:34] LABS: AFPP 2.2 ng/mL (1.6-4.5)
== END 2017-03-22 17:02 | disposition home or self-care (01) | DRG 432 ==
LOC: ED 07:20 → ERH 11:35 → 3RNO 14:01
PROVIDERS: ADMIT Internal Medicine; ATTEND Internal Medicine
PROC: BW40ZZZ Ultrasonography of Abdomen (ICD-10-PCS; 2017-03-20)
PROC: 0W9G3ZZ Drainage of Peritoneal Cavity, Percutaneous Approach (ICD-10-PCS; principal; 2017-03-20 16:00)
DX: K70.31 Alcoholic cirrhosis of liver with ascites (principal); I81 Portal vein thrombosis; K70.11 Alcoholic hepatitis with ascites; K65.8 Other peritonitis; K92.0 Hematemesis; E46 Unspecified protein-calorie malnutrition; T68.XXXA Hypothermia, initial encounter; D68.9 Coagulation defect, unspecified; I11.9 Hypertensive heart disease without heart failure; E87.1 Hypo-osmolality and hyponatremia; I85.10 Secondary esophageal varices without bleeding; R65.10 Systemic inflammatory response syndrome (SIRS) of non-infectious origin without acute organ dysfunction; N39.0 Urinary tract infection, site not specified; L03.90 Cellulitis, unspecified; K76.6 Portal hypertension; E83.42 Hypomagnesemia; E83.51 Hypocalcemia; B19.20 Unspecified viral hepatitis C without hepatic coma; D53.9 Nutritional anemia, unspecified; D75.89 Other specified diseases of blood and blood-forming organs; E55.9 Vitamin D deficiency, unspecified; E87.6 Hypokalemia; F10.20 Alcohol dependence, uncomplicated; F17.200 Nicotine dependence, unspecified, uncomplicated; K20.9 Esophagitis, unspecified; K29.80 Duodenitis without bleeding; K31.89 Other diseases of stomach and duodenum; K44.9 Diaphragmatic hernia without obstruction or gangrene; K76.0 Fatty (change of) liver, not elsewhere classified; R80.9 Proteinuria, unspecified; R00.0 Tachycardia, unspecified; R09.02 Hypoxemia; E80.6 Other disorders of bilirubin metabolism; R74.0 Nonspecific elevation of levels of transaminase and lactic acid dehydrogenase [LDH]; R94.6 Abnormal results of thyroid function studies; R16.2 Hepatomegaly with splenomegaly, not elsewhere classified; K80.20 Calculus of gallbladder without cholecystitis without obstruction; Z91.19 Patient's noncompliance with other medical treatment and regimen; M06.9 Rheumatoid arthritis, unspecified; N28.1 Cyst of kidney, acquired; R31.29 Other microscopic hematuria; Z79.899 Other long term (current) drug therapy; Z80.0 Family history of malignant neoplasm of digestive organs; Z82.49 Family history of ischemic heart disease and other diseases of the circulatory system; Z86.718 Personal history of other venous thrombosis and embolism; Z87.19 Personal history of other diseases of the digestive system; R40.2412 Glasgow coma scale score 13-15, at arrival to emergency department